=== PATIENT | female | born 1980 | race Caucasian/White ===

== ENCOUNTER 2016-08-18 12:00 | Outpatient (CLI) | payer MEDICARE, MEDICAID ==
[2016-08-18 12:31] LABS: BASOPHILS % (AUTO) 0.6 %; EOSINOPHILS # (AUTO) 0.2 10^3/uL (0.0-0.7); EOSINOPHILS % (AUTO) 2.4 %; HCT - HEMATOCRIT 40.2 % (37.0-47.0); HGB - HEMOGLOBIN 13.5 g/dL (12.0-16.0); LYMPHOCYTES # (AUTO) 2.8 10^3/uL (1.5-3.5); LYMPHOCYTES % (AUTO) 36.6 %; MEAN CORPUSCULAR HEMOGLOBIN 28.8 pg (27.0-31.0); MEAN CORPUSCULAR HGB CONC 33.6 g/dL (32.0-36.0); MEAN CORPUSCULAR VOLUME 85.6 fL (81.0-99.0); MEAN PLATELET VOLUME 6.9 fL (7.9-10.8); MONOCYTES # (AUTO) 0.4 10^3/uL (0.0-1.0); MONOCYTES % (AUTO) 4.9 %; NEUTROPHILS # (AUTO) 4.3 10^3/uL (1.5-6.6); NEUTROPHILS % (AUTO) 55.5 %; NUCLEATED RED BLOOD CELLS AUTO 0.1 /100WBC; RED BLOOD COUNT 4.69 10^6/uL (4.20-5.40); RED CELL DISTRIBUTION WIDTH 13.3 % (12.0-15.0); UNCORRECTED WHITE BLOOD COUNT 7.7 x10^3/uL; WHITE BLOOD COUNT 7.7 x10^3/uL (4.8-10.8)
[2016-08-18 12:37] LABS: ALBUMIN/GLOBULIN RATIO 1.7 (1.0-2.2); BILIRUBIN,TOTAL 0.4 mg/dL (0.2-1.0); CALCIUM 9.6 mg/dL (8.5-10.3); CREATININE 0.8 mg/dL (0.4-1.0); POTASSIUM 4.3 mmol/L (3.5-5.0); TOTAL PROTEIN 7.3 g/dL (6.7-8.2)
== END 2016-08-18 12:01 | disposition home or self-care (01) ==
LOC: LAB 12:00
PROVIDERS: ATTEND Internal Medicine
DX: Z79.899 Other long term (current) drug therapy (principal); R11.2 Nausea with vomiting, unspecified; F41.9 Anxiety disorder, unspecified
CPT/HCPCS: 36415; 80053; 82150; 83690; 84443; 85025

== ENCOUNTER 2016-09-27 20:03 | Observation (INO) | payer MEDICARE, MEDICAID ==
[2016-09-27] MEDS ORDERED: ONDANSETRON 4 MG/2 ML VIAL ONE (20:36)
[2016-09-27] MEDS ORDERED: ONDANSETRON 4 MG/2 ML VIAL IVP STA (20:37)
[2016-09-27] MEDS ORDERED: ACETAMINOPHEN 325 MG TABLET PO PRN (21:58)
[2016-09-27] MEDS ORDERED: HYDROcod/ACETAM 5/325 MG TABLET PO PRN (21:58)
[2016-09-27] MEDS ORDERED: ONDANSETRON ODT 4 MG TABLET TL PRN (21:58)
[2016-09-27] MEDS ORDERED: SODIUM CHLORIDE FLUSH 0.9% 10 ML SYRINGE IVP PRN (21:58)
[2016-09-27] MEDS: PANTOPRAZOLE 40 MG TABLET PO SCH (23:01)
[2016-09-28] MEDS ORDERED: ONDANSETRON ODT 4 MG TABLET TL PRN (00:32)
[2016-09-28] MEDS: SODIUM CHLORIDE FLUSH 0.9% 10 ML SYRINGE IVP SCH ×2 (01:33→08:33)
[2016-09-28] MEDS: PANTOPRAZOLE 40 MG TABLET PO SCH (06:34)
[2016-09-28] MEDS: CALCIUM CARBONATE CHEW 500 MG TABLET PO SCH ×2 (08:33→09:50)
[2016-09-28] MEDS ORDERED: POLYETHYLENE GLYCOL 3350 17 GM PACKET PO SCH (09:00)
[2016-09-28] MEDS ORDERED: ASCORBIC ACID CHEW 500 MG TABLET PO SCH (09:00)
[2016-09-28] MEDS ORDERED: carBAMazepine 200 MG TABLET PO SCH (09:00)
[2016-09-28] MEDS ORDERED: FEXOFENADINE 60 MG TABLET PO SCH (09:00)
[2016-09-28] MEDS ORDERED: SODIUM CHLORIDE 0.45% 1,000 ML IV SCH (09:00)
[2016-09-28] MEDS ORDERED: SPIRONOLACTONE 25 MG TABLET PO SCH (09:00)
[2016-09-28] MEDS ORDERED: FLUTICASONE NAS SCH (09:00)
== END 2016-09-28 13:30 | disposition home or self-care (01) ==
DX: I95.2 Hypotension due to drugs (principal); T44.7X5A Adverse effect of beta-adrenoreceptor antagonists, initial encounter; I42.9 Cardiomyopathy, unspecified; I44.7 Left bundle-branch block, unspecified; D64.9 Anemia, unspecified; R41.89 Other symptoms and signs involving cognitive functions and awareness; E66.01 Morbid (severe) obesity due to excess calories; F31.9 Bipolar disorder, unspecified; F41.0 Panic disorder [episodic paroxysmal anxiety]; G47.33 Obstructive sleep apnea (adult) (pediatric); J30.9 Allergic rhinitis, unspecified; K21.9 Gastro-esophageal reflux disease without esophagitis; R11.2 Nausea with vomiting, unspecified; Z68.41 Body mass index [BMI] 40.0-44.9, adult; Z87.440 Personal history of urinary (tract) infections
CPT/HCPCS: 36415; 80053; 81003; 81025; 82550; 82553; 83690; 83735; 84484; 85025; 93005; 93010; 93306; 96361; 96374; 99284; A9270; G0378; Q0162

== ENCOUNTER 2016-10-03 09:48 | Outpatient (CLI) | payer MEDICARE, MEDICAID | END 2016-10-03 09:49 | disposition home or self-care (01) | DX: R11.10 Vomiting, unspecified (principal) | CPT/HCPCS: 78265; A9541 ==

== ENCOUNTER 2016-12-06 10:42 | Outpatient (CLI) | payer MEDICARE, MEDICAID ==
[2016-12-06 11:17] LABS: BASOPHILS % (AUTO) 0.4 %; EOSINOPHILS # (AUTO) 0.1 10^3/uL (0.0-0.7); EOSINOPHILS % (AUTO) 1.5 %; HCT - HEMATOCRIT 39.7 % (37.0-47.0); HGB - HEMOGLOBIN 13.6 g/dL (12.0-16.0); LYMPHOCYTES # (AUTO) 2.5 10^3/uL (1.5-3.5); LYMPHOCYTES % (AUTO) 29.3 %; MEAN CORPUSCULAR HEMOGLOBIN 30.1 pg (27.0-31.0); MEAN CORPUSCULAR HGB CONC 34.3 g/dL (32.0-36.0); MEAN PLATELET VOLUME 6.6 fL (7.9-10.8); MONOCYTES # (AUTO) 0.4 10^3/uL (0.0-1.0); NEUTROPHILS # (AUTO) 5.5 10^3/uL (1.5-6.6); NEUTROPHILS % (AUTO) 63.8 %; NUCLEATED RED BLOOD CELLS AUTO 0.1 /100WBC; RED BLOOD COUNT 4.51 10^6/uL (4.20-5.40); RED CELL DISTRIBUTION WIDTH 12.8 % (12.0-15.0); UNCORRECTED WHITE BLOOD COUNT 8.5 x10^3/uL; WHITE BLOOD COUNT 8.5 x10^3/uL (4.8-10.8)
[2016-12-06 11:46] LABS: ALBUMIN/GLOBULIN RATIO 1.6 (1.0-2.2); BILIRUBIN,TOTAL 0.5 mg/dL (0.2-1.0); BUN - BLOOD UREA NITROGEN 13 mg/dL (6-20); CALCIUM 9.4 mg/dL (8.5-10.3); CARBON DIOXIDE - CO2 25 mmol/L (21-32); CHLORIDE 103 mmol/L (101-111); CHOL/HDL RATIO 4.4 (<4.4); CHOLESTEROL 189 mg/dL; CREATININE 0.7 mg/dL (0.4-1.0); GFR - MDRD 94 (>89); GLUCOSE 108 mg/dL (70-100); HDL CHOLESTEROL 43 mg/dL; LDL/HDL RATIO 2.9 (<4.4); POTASSIUM 4.1 mmol/L (3.5-5.0); SODIUM 137 mmol/L (135-145); TOTAL PROTEIN 7.4 g/dL (6.7-8.2); TRIGLYCERIDES 117 mg/dL; VLDL CHOLESTEROL 23 mg/dL
== END 2016-12-06 10:43 | disposition home or self-care (01) ==
LOC: LAB 10:42
PROVIDERS: ATTEND Internal Medicine
DX: Z00.00 Encounter for general adult medical examination without abnormal findings (principal); I42.9 Cardiomyopathy, unspecified; R11.2 Nausea with vomiting, unspecified; G56.00 Carpal tunnel syndrome, unspecified upper limb; F31.9 Bipolar disorder, unspecified; F41.9 Anxiety disorder, unspecified; Z79.899 Other long term (current) drug therapy
CPT/HCPCS: 36415; 80053; 80061; 84443; 85025

== ENCOUNTER 2017-04-21 08:00 | Outpatient (CLI) | payer MEDICARE, MEDICAID | END 2017-04-21 08:01 | disposition home or self-care (01) | LOC: LAB.R 08:00 | PROVIDERS: ATTEND Registered Nurse | DX: Z30.430 Encounter for insertion of intrauterine contraceptive device (principal); Z11.3 Encounter for screening for infections with a predominantly sexual mode of transmission | CPT/HCPCS: 87480; 87491; 87510; 87591; 87660 ==

== ENCOUNTER 2017-04-21 14:46 | Outpatient (CLI) | payer MEDICARE, MEDICAID ==
[2017-04-22 04:46] LABS: TEST RESULT REPORT
== END 2017-04-21 14:47 | disposition home or self-care (01) ==
LOC: LAB 14:46
PROVIDERS: ATTEND Registered Nurse
DX: Z30.430 Encounter for insertion of intrauterine contraceptive device (principal); Z11.3 Encounter for screening for infections with a predominantly sexual mode of transmission
CPT/HCPCS: 36415; 81599; 86592; 86695; 86696; 87389; 87480; 87491; 87510; 87591; 87660

== ENCOUNTER 2017-04-28 13:06 | Outpatient (CLI) | payer MEDICARE, MEDICAID ==
--- NOTE | 2017-04-28 17:07 | Ultrasound Report ---
PELVIC ULTRASOUND: 04/28/2017 CLINICAL INDICATION: Displacement of intrauterine contraceptive device. TECHNIQUE: Transabdominal pelvic ultrasound performed for global evaluation. Transvaginal pelvic ul trasound performed for detailed evaluation. Real-time scanning performed and static images obtained. The uterus is anteverted, measuring 9.1 x 5.7 x 4.2 cm. The endometrial echo complex measures 7 mm. No focal myometrial lesion is present. The right ovary is unremarkable, measuring 2.4 x 1.8 x 1.5 c m. The left ovary measures 5.0 x 2.8 x 2.5 cm, and contains a 2.2 x 1.8 x 1.7 cm follicle. Trace fr ee fluid is present. IMPRESSION: NORMAL PELVIC ULTRASOUND. NO IUD VISUALIZED. JOB #: [id number] EXT JOB #:[id number]
== END 2017-04-28 13:07 | disposition home or self-care (01) ==
LOC: DI 13:06
PROVIDERS: ATTEND Registered Nurse
DX: T83.32XA Displacement of intrauterine contraceptive device, initial encounter (principal)
CPT/HCPCS: 76830; 76856

== ENCOUNTER 2017-09-28 14:03 | Outpatient (CLI) | payer MEDICARE, MEDICAID ==
--- NOTE | 2017-09-28 18:54 | XRAY Report ---
THREE VIEW LEFT FOOT: 09/28/2017 CLINICAL INDICATION: Toe pain. FINDINGS: AP, lateral, oblique views of the left foot demonstrate a fracture of the distal phalanx of the fourth toe, better seen on toe films of the same day. No other fracture is appreciated. No radiopaque foreign body is seen in the soft tissues. Plantar calcaneal spurring is present. IMPRESSION: FRACTURE OF THE DISTAL PHALANX OF THE FOURTH TOE, BETTER SEEN ON TOE FILMS OF THE SAME DAY. TD: 09/28/2017 18:53
--- NOTE | 2017-09-28 18:55 | XRAY Report ---
THREE VIEW LEFT FOURTH TOE: 09/28/2017 CLINICAL INDICATION: Toe pain. FINDINGS: AP, lateral, oblique views of the left fourth toe demonstrate a mildly displaced fracture of the distal phalanx. No intraarticular extension is seen. IMPRESSION: MILDLY DISPLACED FRACTURE OF THE DISTAL PHALANX OF THE FOURTH TOE. TD: 09/28/2017 18:54
== END 2017-09-28 14:04 | disposition home or self-care (01) ==
LOC: DI 14:03
PROVIDERS: ATTEND Internal Medicine
DX: S92.532A Displaced fracture of distal phalanx of left lesser toe(s), initial encounter for closed fracture (principal)
CPT/HCPCS: 73660

== ENCOUNTER 2017-09-29 08:46 | Outpatient (CLI) | payer MEDICARE, MEDICAID | END 2017-09-29 08:47 | disposition home or self-care (01) | LOC: LAB 08:46 | PROVIDERS: ATTEND Registered Nurse | DX: L68.0 Hirsutism (principal) | CPT/HCPCS: 36415; 82951 ==

== ENCOUNTER 2017-10-13 13:29 | Outpatient (CLI) | payer MEDICARE, MEDICAID ==
[2017-10-13 19:02] LABS: BILIRUBIN,URINE NEGATIVE (NEGATIVE); GLUCOSE, URINE (UA) NEGATIVE (NEGATIVE); KETONES,URINE (UA) NEGATIVE (NEGATIVE); LEUKOCYTE ESTERASE, URINE NEGATIVE (NEGATIVE); NITRITE,URINE NEGATIVE (NEGATIVE); OCCULT BLOOD,URINE NEGATIVE (NEGATIVE); PH,URINE 6.5 PH (5.0-7.5); PROTEIN,URINE NEGATIVE (NEGATIVE); UROBILINOGEN,URINE 0.2 (NORMAL) E.U./dL (NORMAL)
[2017-10-13 19:08] LABS: CLARITY,URINE CLEAR (CLEAR)
[2017-10-13 19:28] LABS: BACTERIA,URINE Rare /HPF (None Seen); MUCUS,URINE Few Strands; RBC,URINE 0-5 /HPF (0-5); SQUAMOUS EPITHELIAL CELL,UR FEW Squamous (<= Few)
== END 2017-10-13 13:30 | disposition home or self-care (01) ==
LOC: LAB.N 13:29
PROVIDERS: ATTEND Obstetrics & Gynecology
DX: N39.41 Urge incontinence (principal)
CPT/HCPCS: 81001

== ENCOUNTER 2017-10-26 16:34 | Outpatient (CLI) | payer MEDICARE, MEDICAID ==
[2017-10-26 12:19] LABS: BILIRUBIN,URINE NEGATIVE (NEGATIVE); GLUCOSE, URINE (UA) NEGATIVE (NEGATIVE); KETONES,URINE (UA) NEGATIVE (NEGATIVE); LEUKOCYTE ESTERASE, URINE NEGATIVE (NEGATIVE); NITRITE,URINE NEGATIVE (NEGATIVE); OCCULT BLOOD,URINE NEGATIVE (NEGATIVE); PROTEIN,URINE NEGATIVE (NEGATIVE); UROBILINOGEN,URINE 0.2 (NORMAL) E.U./dL (NORMAL)
[2017-10-26 12:26] LABS: CLARITY,URINE CLOUDY (CLEAR)
[2017-10-26 12:38] LABS: BACTERIA,URINE Many /HPF (None Seen); RBC,URINE None Seen /HPF (0-5); SQUAMOUS EPITHELIAL CELL,UR RARE Squamous (<= Few)
== END 2017-10-26 16:35 | disposition home or self-care (01) ==
LOC: LAB.R 16:34
PROVIDERS: ATTEND Obstetrics & Gynecology
DX: R35.0 Frequency of micturition (principal)
CPT/HCPCS: 81001; 87086

== ENCOUNTER 2017-12-26 11:30 | Outpatient (CLI) | payer MEDICARE, MEDICAID ==
[2017-12-26 12:06] LABS: HGB - HEMOGLOBIN 13.1 g/dL (12.0-16.0); MEAN CORPUSCULAR HEMOGLOBIN 28.8 pg (27.0-31.0); MEAN CORPUSCULAR HGB CONC 32.7 g/dL (32.0-36.0); MEAN CORPUSCULAR VOLUME 88.1 fL (81.0-99.0); RED BLOOD COUNT 4.55 10^6/uL (4.20-5.40); WHITE BLOOD COUNT 10.8 x10^3/uL (4.8-10.8)
[2017-12-26 12:07] LABS: BASOPHILS % (AUTO) 0.4 %; EOSINOPHILS # (AUTO) 0.1 10^3/uL (0.0-0.7); EOSINOPHILS % (AUTO) 1.1 %; LYMPHOCYTES # (AUTO) 2.4 10^3/uL (1.5-3.5); LYMPHOCYTES % (AUTO) 21.9 %; MEAN PLATELET VOLUME 6.5 fL (7.9-10.8); MONOCYTES # (AUTO) 0.5 10^3/uL (0.0-1.0); MONOCYTES % (AUTO) 4.7 %; NEUTROPHILS # (AUTO) 7.8 10^3/uL (1.5-6.6); NEUTROPHILS % (AUTO) 71.9 %; PLT - PLATELET COUNT 404 10^3/uL (130-450); RED CELL DISTRIBUTION WIDTH 14.3 % (12.0-15.0)
[2017-12-26 12:18] LABS: HB2 TOTAL 14.3 g/dL; HEMOGLOBIN A1C 0.48 g/dL; HEMOGLOBIN A1C % 5.2 % (4.6-6.2)
== END 2017-12-26 11:31 | disposition home or self-care (01) ==
LOC: LAB 11:30
PROVIDERS: ATTEND Internal Medicine
DX: R73.01 Impaired fasting glucose (principal); Z79.899 Other long term (current) drug therapy
CPT/HCPCS: 36415; 83036; 85025

== ENCOUNTER 2018-01-01 16:05 | Outpatient (CLI) | END 2018-01-01 16:06 | disposition home or self-care (01) ==

== ENCOUNTER 2018-01-03 10:00 | Day surgery (SDC) | payer MEDICARE, MEDICAID ==
--- NOTE | 2018-01-02 07:28 | PREOP HISTORY & PHYSICAL ---
DATE OF SERVICE: 01/01/2018 Physician: Chris Durham MD ANTICIPATED DATE OF PROCEDURE: 01/03/2018. DIAGNOSES 1. Stress urinary incontinence. 2. Sterilization. 3. Congestive heart failure, "healed." 4. Morbid obesity. 5. Beta francisco therapy. INTENDED PROCEDURES 1. Laparoscopic bilateral salpingectomy. 2. Urethral sling procedure (MiniArc) HISTORY OF PRESENT ILLNESS: Patient is a 37-year-old primigravida who has known idiopathic congenital heart failure and right bundle branch block. Patient is currently being followed at [facility]. She is termed a healed congestive heart failure, in that her ejection fraction is now near normal, at 50 percent to 55 percent. Patient had an IUD in place that was very painful, could not be tolerated and therefore removed. Current recommendations for congestive heart failure patients is contraception either with a nonhormonal contraception, with IUD if possible, since with CHF carries a mortality rate of 40 percent. Patient had her IUD removed and strongly desires sterilization. She had 1 occcasion of unprotected sex and had 1 course of plan B. After a consultation with both Dr. De La Garza and Dr. Moore of [facility], she has been cleared for laparoscopic sterilization procedure. Reference consult letters. In addition, patient has stress urinary incontinence without urge incontinence or dysuria. UV mobility has been illustrated on physical examination. She was originally sent to Dr. Nunez, Urology, for urodynamic studies. Urodynamics was not completed; however, the stress incontinence remains problematic. Patient has cognitive disability and memory lapses and this, as well as chronic anxiety disorder, has compromised her care. We discussed the need to update her advanced directive since it states Do Not Resuscitate. She strongly conveyed that she wants cardiac pulmonary resuscitation if there is an adverse event. 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 She reports q.32 to 34-day menses with 3 days of light flow. Patient is not currently on any contraceptive. She has had 2 abnormal Pap smears. The last abnormal was in 2007 with inflammatory ASCUS. Patient is status post cryo with Dr. Santillan, due to dysplasia. 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 Reference notes above. Screening colonoscopy 2016, normal, and EGD for chronic nausea and vomiting. HISTORY: A 38-week female induced secondary to PUPPS and positive GBS status. Heavy blood loss post delivery. PSYCHIATRIC HISTORY: Anxiety disorder with bipolar affective disorder and panic attacks, currently seeing psychiatrist. Patient was given a short-term prescription for lorazepam. Patient has a history of psychiatric admission in [place]. PAST SURGICAL HISTORY: [place] tooth extraction, EGD, and colonoscopy. Childhood bladder surgery, type unknown. ALLERGIES: NO KNOWN DRUG ALLERGY. MEDICATIONS: Beta blockers and multiple cardiac drugs. Reference intake log. FAMILY HISTORY: Diabetes, CAD, hypertension, hypercholesterolemia. SOCIAL HISTORY: Marital Status: Single. Prior smoker, quit 5 years ago. No drug or tobacco use other than occasional marijuana. REVIEW OF SYSTEMS CONSTITUTIONAL: Patient is gradually losing weight on a planned diet and activity program. HEENT: Negative. RESPIRATORY: Negative. CARDIOVASCULAR: No palpitations, irregular heart beat, or anginal pain. GASTROINTESTINAL: Negative. GENITOURINARY: Urinary stress incontinence is noted during the day, positive pad use. MUSCULOSKELETAL: Negative. No edema. SKIN: Negative. BREASTS: Negative. NEUROLOGIC: Grossly intact. PSYCHOLOGIC: Other than baseline anxiety, no problems noted. PHYSICAL EXAMINATION GENERAL: Well groomed, pleasant manner, cooperative. HEENT: Nontraumatic. Equal pupils. Normal ocular movements. Nonicteric sclerae. No hirsutism or acne noted. NECK: No thyromegaly or nodularity. LUNGS: Clear to auscultation. CARDIAC: Regular. No significant murmur or gallop. BREASTS: No self-breast exam findings noted, patient's first exam. ABDOMEN: Truncal obesity. Mild hepatomegaly. Normal spleen. No herniations. No significant tenderness. UROGENITAL: Vulva, Bartholin glands normal. No atrophy. No significant lesions. Urethral meatus seems normal and no palpable diverticula. Male hair patterning. VAGINA: Grade 1 cystocele. Grade 1- rectocele. UV mobility noted. Cervix, no abnormal secretions. No lesions. No ulceration. Uterus approximately 6 weeks' size, not hypermobile. Adnexa difficult to tell due to obesity but not felt to be enlarged. EXTREMITIES: Nonedematous. No muscle wasting. NEUROLOGIC: Grossly intact. PSYCHOLOGIC: Baseline anxiety noted. Known cognitive/memory defect. ASSESSMENT 1. The patient desires sterilization. She is unable to tolerate IUD and hormonal methods with congestive heart failure are not recommended. Currently, her status is "healed," but, if in the future there is a CHF relapse, unintentional , or just in itself, carries grave risks. The patient has had intensive workup with [facility] and is cleared for laparoscopic procedure. 2. The patient has stress urinary incontinence with concomitant UV mobility and cystocele. Sling procedure is curative in roughly 90% of the time. There is no evidence of urinary tract infection. PLAN 1. Bilateral salpingectomy to provide reliable means of sterilization. Patient is aware that sterilization is a surgical procedure that carries risk including: Bleeding, transfusion, infection, damage to abdominal viscera or bladder, anesthesia reaction and in extreme . She is aware that her history of congestive heart failure increases the risk of adverse event. 2. MiniArc suburethral sling. We reviewed the mechanics, risks and alternatives to sling procedure. In addition to the usual operative risks outlined above a sling procedure can result in urinary retention, urinary urgency, lack of cure, erosion of sling mesh into vaginal wall, urethra or bladder. She is aware that her BMI could accelerate the sling losing effectiveness or erosion process. Return to urology for second opinion was offered. Patient is not felt to need more than 72 hours' time in the hospital, and we will attempt to accomplish this as an extended stay or observation type surgery. She will probably require straight cath bladder training for at least 24 hours.She should maintain uninterrupted beta francisco therapy. In addition, 3 grams of Ancef prior to surgery would be prudent, given her heart disease history. Formal visit with Anesthesiology is pending. TD: 01/01/2018 15:55 MARIANELA
[~2018-01-03 10:00] MED LIST: ACETAMINOPHEN 500 MG TABLET PO SCH; ESTROGENS, CONJUGATED CREAM 30 GM TUBE ONE; LACTATED RINGERS 1,000 ML IV SCH; LIDOCAINE 1%-EPI 1:100000 30 ML MDV ONE; ONDANSETRON 4 MG/2 ML VIAL IVP PRN; ZOLPIDEM 5 MG TABLET PO PRN; oxyCODONE 5 MG TABLET PO PRN
[2018-01-03 10:29] LABS: HCG UR QUAL NEGATIVE
[2018-01-03] MEDS ORDERED: LACTATED RINGERS 1,000 ML IV ONE ×2 (10:36→11:30)
[2018-01-03] MEDS ORDERED: BUPIVACAINE 0.25% PF 30 ML VIAL ONE (11:01)
[2018-01-03] MEDS ORDERED: BUPIVACAINE 0.25%-EPI 1:200000 PF 30 ML VIAL ONE (11:02)
[2018-01-03] MEDS ORDERED: BUPIVACAINE 0.25%-EPI 1:200000 PF 30 ML VIAL SUBQ ONE (11:14)
[2018-01-03] MEDS ORDERED: BUPIVACAINE 0.25% PF 30 ML VIAL SUBQ ONE ×2 (11:16)
[2018-01-03] MEDS ORDERED: MIDAZOLAM 2 MG/2 ML VIAL IVP ONE (11:30)
[2018-01-03] MEDS ORDERED: FUROSEMIDE 40 MG/4 ML VIAL IVP ONE (11:30)
[2018-01-03] MEDS ORDERED: KETOROLAC 30 MG/ML VIAL IVP ONE (11:30)
[2018-01-03] MEDS ORDERED: ROCURONIUM 50 MG/5 ML VIAL IVP ONE (11:30)
[2018-01-03] MEDS ORDERED: LIDOCAINE-MPF 2% 5 ML VIAL IM ONE (11:30)
[2018-01-03] MEDS ORDERED: fentaNYL 100 MCG/2 ML VIAL IVP ONE (11:30)
[2018-01-03] MEDS ORDERED: DEXAMETHASONE 4 MG/ML VIAL IVP ONE (11:30)
[2018-01-03] MEDS ORDERED: GLYCOPYRROLATE 1 MG/5 ML VIAL IVP ONE (11:30)
[2018-01-03] MEDS ORDERED: NEOSTIGMINE 1 MG/1 ML 10 ML MDV IVP ONE (11:30)
[2018-01-03] MEDS ORDERED: SUCCINYLCHOLINE 200 MG/10 ML VIAL IVP ONE (11:30)
[2018-01-03] MEDS ORDERED: PROPOFOL 200 MG/20 ML VIAL IVP ONE (11:30)
[2018-01-03] MEDS ORDERED: CLINDAMYCIN 600 MG/50 ML 50 ML IV ONE (11:42)
[2018-01-03] MEDS ORDERED: metroNIDAZOLE 500 MG/100 ML 500 MG/100 ML BAG ONE (11:42)
[2018-01-03] MEDS ORDERED: METHYLENE BLUE 0.5% 50 MG/10 ML AMPULE ONE (12:20)
--- NOTE | 2018-01-03 13:16 | OPERATIVE REPORT ---
Operative Report - General Planned Procedure: Laparoscopic bilateral salpingectomy; cystoscopy; mini arc suburethral slin Pre-Op Diagnosis: Desires sterilization; stress urinary incontinence; history of idiopathic c Procedure Performed: Laparoscopic bilateral salpingectomy; cystoscopy; endocervical curette sample Post Op Diagnosis: Same as above; no flow observed from left ureteral orifice - Procedure Note Primary Surgeon: Chris Conteh ACOG Anesthesia Provider: Luis Nichols, certified nurse bottle hop Anesthesia Technique: General ET tube Pathology: 2 tubal segments IV Fluids (mL): 1,300 Estimated Blood Loss (mL): 10 Urine Output (mL): 100 Drain/Tube Type: Other (Bowers catheter with clear urine) Complications: none
[2018-01-03] MEDS ORDERED: ACETAMINOPHEN 1,000 MG/100 ML 100 ML IV ONE (13:54)
[2018-01-03] MEDS ORDERED: HYDROcod/ACETAM 5/325 MG TABLET ONE (14:54)
[2018-01-03 16:10] VITALS: BP 122/65
--- NOTE | 2018-01-03 17:47 | OPERATIVE REPORT ---
DATE OF SERVICE: 01/03/2018 Physician: Chris Durham MD PREOPERATIVE DIAGNOSES 1. Desires sterilization. 2. Stress urinary incontinence. 3. History of idiopathic cardiomyopathy. 4. History of childhood urologic surgery. 5. Morbid obesity, body mass index over 40. POSTOPERATIVE DIAGNOSES 1. Successful sterilization through bilateral salpingectomy; cystoscopy could not document flow from left ureteral orifice; suburethral sling procedure not performed. 2. Endocervical lesion sampled by curettage. 3. Morbid obesity, body mass index over 40. SURGEON: Chris Durham M.D., FACOG ANESTHESIA: Luis Nichols, certified nurse needlemaker. ANESTHESIA TYPE: General, ET tube placed. COMPLICATIONS: None. ESTIMATED BLOOD LOSS: 10 mL. IV FLUIDS: 1300 mL. URINE OUTPUT: 100 mL. FINDINGS: On initial examination, a small white crescent material was found on the endocervix. This was removed with a curette and sent to path. Uterus is normal size and globular without irregularity suggestive of fibroid. Both tubes are open and fluffy-appearing. The ovaries are normal in appearance without any excrescence or cysts. Bladder neck mobility is present. Urethroscopy did not find any diverticula. The bladder interior itself has no tumor or growths. The surface of the mucosa is not inflamed and there is no obvious interstitial cystitis. Right ureters were slow to spurt urine. After Lasix, right ureter had brisk flow. The left ureter was observed for over 10 minutes and there was still no flow. TECHNIQUE: Prior to surgery, I reviewed the risks, benefits and mechanics of the intended laparoscopic surgery and cystoscopy with follow on sling procedure. Final consents were signed inclusive of Medicaid sterilization consent. The patient was brought to the operating room and placed in supine position for administration of general anesthesia. She was uneventfully induced and intubated. She was moved to the low dorsal lithotomy position on [facility]. She was prepped and draped in the customary sterile fashion. A timeout briefing was done per protocol. A speculum was inserted and the cervix visualized. A small white crescent was noted and sampled with a curette. The endocervical canal was gently dilated with serial application of Hegar probes to Hegar #4. HUMI uterine manipulator was then uneventfully placed and the balloon insufflated with 5 mL of air. All vaginal instruments were then removed. The patient was returned to the low dorsal lithotomy position. A small incision was placed under the umbilical skin fold after injecting 3 mL of plain Marcaine 0.25%. Using direct visualization and Visiport, a 5 mm trocar was uneventfully placed. The abdomen was insufflated with CO2 under 12 mm of pressure. Right and left lower quadrant operating ports were placed under direct visualization. The pelvis was then assessed. A Trendelenburg 30 degrees was used to facilitate visualization. Starting with the right tube, the ampullary tube was grasped and tented superiorly to reveal the mesosalpinx. Mesosalpinx was uneventfully desiccated and divided with LigaSure. This was continued up to the cornual verge. The tube was then transected with LigaSure at that point. This procedure was uneventfully repeated on the left hand side. Tubes were removed through the 5 mm ports. The CO2 gas was then vented. Trocar sleeves were removed. Abdomen was desufflated of CO2 gas. Skin wounds were closed with interrupted subcuticular stitches of 4-0 Monocryl. Additional plain Marcaine 0.25% was injected for comfort. The wounds were dressed with Dermabond. We moved to the vaginal phase of the case. Legs were brought to a higher position. A 70-degree video cystoscope was prepared. The video cystoscope was passed through the urethra and into the bladder cavity. The bladder was insufflated with sterile normal saline. Beginning at the dome of the bladder, a systematic evaluation of the bladder mucosa was made. There was some cystitis cystica at the trigone, but this was not deemed significant. Next the right ureter was located and observed. After 5 minutes, the ureter had free flow of clear urine. Next, the left ureter was observed and there was no flow of urine. The bladder was pressurized and depressurized several cycles. The bladder was gently palpated with vaginal fingers, but yet there was no flow of urine. Ten minutes were spent in direct visualization of the left ureteral orifice. Lasix was given as well as methylene blue. There was no outflow of urine. At this point, it was decided not to move forward with the suburethral sling procedure due to concerns about the integrity of the urinary collecting tract. The patient had surgery in childhood, which we have never received the records documenting exactly what was done. Prudence dictated not performing this sling incontinence procedure until after a urology workup. The patient was returned to the supine position. Bowers catheter was placed. The patient was uneventfully awakened from general anesthesia and sent to the recovery room in good condition. Once in recovery, the intraoperative events were discussed. The patient understands my hesitance to perform urinary incontinence procedure until the status of her collecting tract is known. All sponge, needle, and instrument counts were confirmed as correct. The patient will be seen in 2 weeks for postop evaluation. Until that time, she was placed on extended stay. We discussed the intraoperative findings on 3 occasions. The patient has difficulty with cognitive function. For pain control, the patient was admitted on an extended stay. DISCHARGE MEDICATIONS: Reserve 325/5. TD: 01/03/2018 13:57 MTDSky
[2018-01-03] MEDS ORDERED: NITROFURANTOIN MACRO 100 MG CAPSULE PO SCH (21:00)
== END 2018-01-03 10:01 | disposition home or self-care (01) ==
LOC: SDS 10:00 → EDSTATUS 12:30
PROVIDERS: ATTEND Obstetrics & Gynecology
PROC: 0UT74ZZ Resection of Bilateral Fallopian Tubes, Percutaneous Endoscopic Approach (ICD-10-PCS; principal; 2018-01-03 11:15)
PROC: 0TJB8ZZ Inspection of Bladder, Via Natural or Artificial Opening Endoscopic (ICD-10-PCS; 2018-01-03 11:15)
DX: Z30.2 Encounter for sterilization (principal); N39.3 Stress incontinence (female) (male); N88.8 Other specified noninflammatory disorders of cervix uteri; I50.9 Heart failure, unspecified; I42.9 Cardiomyopathy, unspecified; E66.01 Morbid (severe) obesity due to excess calories
CPT/HCPCS: 52000; 58661; 81025; A9270; J0131; J0330; J7120; 85025; 88302; 88305

== ENCOUNTER 2018-01-15 11:24 | Outpatient (CLI) | payer MEDICARE, MEDICAID ==
[2018-01-15] MEDS ORDERED: IOPAMIDOL-300 100 ML VIAL ONE (11:47)
[2018-01-15] MEDS ORDERED: IOPAMIDOL-300 100 ML VIAL IVP ONE (12:30)
--- NOTE | 2018-01-15 14:53 | CT Report ---
Procedure Date: 01/15/2018 Accession Number: [id number] / [id number] Procedure: CT - IVP CPT Code: FULL RESULT: EXAM: IVP DATE: 01/15/2018 12:47 PM CLINICAL HISTORY: ABNORMAL URETERAL ANATOMY ON CYSTOSCOPY COMPARISON: None. TECHNIQUE: Routine helical imaging was performed through the kidneys, ureters and bladder in the precontrast and postcontrast phases, using split bolus technique. IV Contrast: 100 mL of Isovue 300 Reconstructions: Coronal and sagittal. In accordance with CT protocol optimization, one or more of the following dose reduction techniques were utilized for this exam: automated exposure control, adjustment of mA and/or KV based on patient size, or use of iterative reconstructive technique. FINDINGS: Lung Bases: Normal. Right Kidney/Ureter: No stones, hydronephrosis, or masses. Left Kidney/Ureter: No stones, hydronephrosis, or masses. Other Solid Organs: The liver, spleen, pancreas, gallbladder, and adrenal glands are unremarkable. The bile ducts are unremarkable. Peritoneal Cavity/Bowel: Normal. No free fluid, free air or adenopathy. No masses. Bowel loops are unremarkable. Pelvic Organs: The urinary bladder appears unremarkable. No cystocele is seen. Trace free fluid is present, likely physiologic. Vasculature: Normal. Bones: Normal. Other: None. IMPRESSION: No evidence of ureteral duplication. Normal CT IVP. RADIA
== END 2018-01-15 11:25 | disposition home or self-care (01) ==
LOC: DI 11:24
PROVIDERS: ATTEND Internal Medicine
DX: R93.41 Abnormal radiologic findings on diagnostic imaging of renal pelvis, ureter, or bladder (principal)
CPT/HCPCS: 74178; Q9967

== ENCOUNTER 2018-02-09 23:22 | Emergency (ER) | payer MEDICARE, MEDICAID ==
[2018-02-09] MEDS ORDERED: SODIUM CHLORIDE 0.9% 1,000 ML IV ONE (23:43)
[2018-02-09] MEDS ORDERED: DEXAMETHASONE 10 MG/ML VIAL IVP STA (23:43)
[2018-02-09] MEDS ORDERED: FAMOTIDINE 20 MG in SODIUM CHLORIDE 0.9% 50 ML IV ONE (23:43)
[2018-02-09] MEDS ORDERED: diphenhydrAMINE INJ 50 MG/ML VIAL IVP STA (23:43)
[2018-02-09] MEDS ORDERED: EPINEPHrine 0.3 MG/0.3 ML SYRINGE IM ONE (23:44)
--- NOTE | 2018-02-09 23:45 | ED Physician Documentation ---
History of Present Illness - Stated complaint Stated Complaint: POSS ALLERGIC REACTION/SOA - Chief complaint Chief Complaint: Resp - History obtained from History obtained from: Patient - Additonal information Additional information: 37-year-old female presents the emergency department for evaluation of an allergic reaction. The patient took Bactrim this evening and subsequently has developed generalized redness, a feeling of warmth throughout her body and throat tightness and a perception of feeling short of breath. Symptoms are described as moderate. No other relieving factors. No history of prior reactions. No attempts at symptom management Review of Systems Constitutional: denies: Fever, Chills Eyes: denies: Discharge Ears: denies: Ear pain Nose: denies: Congestion Throat: denies: Oral lesions / sores Cardiac: denies: Chest pain / pressure Respiratory: reports: Dyspnea : denies: Dysuria Skin: denies: Laceration (s) Musculoskeletal: denies: Neck pain Neurologic: denies: Generalized weakness Immunocompromised: denies: Chemotherapy PD PAST MEDICAL HISTORY - Past Medical History Cardiovascular: Other Respiratory: None Endocrine/Autoimmune: None GI: GERD, Hiatal hernia, Chronic diarrhea : Incontinence, Nocturia, Frequency HEENT: Chronic vision loss, Other Psych: Depression, Anxiety, Panic attacks, ADD/ADHD Musculoskeletal: None, Fatigue Derm: None - Past Surgical History 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, EGD /[employer]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: Tubal ligation, Other HEENT: Other - Present Medications Home Medications: Ambulatory Orders Medication Instructions Recorded Confirmed Losartan Potassium 25 mg PO BID 03/22/16 01/03/18 Omeprazole 20 mg PO BID 03/22/16 01/03/18 Spironolactone 50 mg PO DAILY 03/22/16 01/03/18 Ondansetron [Zofran Odt] 8 mg PO Q8HR 03/25/16 01/03/18 Calcium Carbonate [Tums] 400 mg PO TID 09/28/16 01/03/18 Diphenoxylate HCl/Atropine 1 tab PO DAILY PRN 09/28/16 01/03/18 [Diphenoxylate-Atrop 2.5-0.025] Lamotrigine [Lamotrigine ER] 200 mg PO DAILY 01/01/18 01/03/18 Melatonin 1 mg PO QPM PRN 01/01/18 01/03/18 Metoprolol Succinate [Toprol Xl] 25 mg PO BID 01/01/18 01/03/18 Multivitamin [Multiple Vitamins] 1 each PO DAILY 01/01/18 01/03/18 Oxybutynin Chloride [Ditropan Xl] 15 mg PO DAILY 01/01/18 01/03/18 Lorazepam [Ativan] 1 mg PO TID PRN 01/03/18 01/03/18 - Allergies Allergies/Adverse Reactions: Allergies Allergy/AdvReac Type Severity Reaction Status Date / Time methylphenidate HCl * AdvReac Emesis Verified 03/25/16 07:28 [From Ritalin] Penicillins AdvReac Unknown Verified 01/01/18 16:22 pollen extracts AdvReac Unknown Verified 01/03/18 10:34 - Social History Does the pt smoke?: No Smoking Status: Never smoker Does the pt drink ETOH?: Yes Does the pt have substance abuse?: Yes Substance Use and Type: Marijuana - Immunizations Immunizations are current?: Yes PD ED PE NORMAL - General General: Alert and oriented X 3 - HEENT HEENT: Atraumatic, PERRL, EOMI, Ears normal, Other (The uvula is midline and nonedematous, there is no trismus, the tongue appears to be within normal limits , the mouth is moist, there is no posterior pharynx edema. No stridor. The patient has a normal sounding voice) - Neck Neck: Supple, no meningeal sign - Cardiac Cardiac: Strong equal pulses - Respiratory Respiratory: No respiratory distress, Clear bilaterally - Derm Derm: Normal color - Extremities Extremities: No deformity - Neuro Neuro: Alert and oriented X 3, Normal speech - Psych Psych: Normal affect PD ED PE EXPANDED - Cardiac Cardiac: Tachy Results - Vitals Vitals: Vital Signs - 24 hr 02/09/18 02/10/18 02/10/18 23:25 00:10 00:40 Temperature 36.7 C Heart Rate 127 H 94 80 Respiratory 25 H 18 20 Rate Blood Pressure 139/95 H 116/81 H 122/74 O2 Saturation 99 97 100 02/10/18 02:15 Temperature Heart Rate 73 Respiratory 13 Rate Blood Pressure 95/52 L O2 Saturation 98 Oxygen O2 Source Room air PD MEDICAL DECISION MAKING - ED course ED course: The patient was treated in the emergency department for her allergic reaction and was observed for close to 4 hours. The patient had significant improvement in a reevaluation was almost at her baseline. There is no evidence of airway involvement and the patient appears appropriate for discharge and ongoing outpatient management. I discussed the findings with the patient and plan she understands and agrees. I discussed warning signs and recommended returning to the emergency department immediately for worsening or any concerns - Sepsis Event Vital Signs: Vital Signs - 24 hr 02/09/18 02/10/18 02/10/18 23:25 00:10 00:40 Temperature 36.7 C Heart Rate 127 H 94 80 Respiratory 25 H 18 20 Rate Blood Pressure 139/95 H 116/81 H 122/74 O2 Saturation 99 97 100 02/10/18 02:15 Temperature Heart Rate 73 Respiratory 13 Rate Blood Pressure 95/52 L O2 Saturation 98 Oxygen O2 Source Room air Departure - Departure Disposition: 01 Home, Self Care Clinical Impression: Allergic reaction caused by a drug Qualifiers: Encounter type: initial encounter Qualified Code(s): T78.40XA - Allergy, unspecified, initial encounter Condition: Good Instructions: ED Allerg React Other General Ch Follow-Up: Corinne Watts MD [Primary Care Provider] - Within 3 Days Comments: Please return to the emergency department for worsening symptoms or any concerns
[2018-02-10 02:53] VITALS: BP 110/70
== END 2018-02-10 03:13 | disposition home or self-care (01) ==
LOC: ED 23:22
DX: T78.40XA Allergy, unspecified, initial encounter (principal); R00.0 Tachycardia, unspecified
CPT/HCPCS: 96365; 96372; 96375; 99283; J0171; J1200; J7040

== ENCOUNTER 2018-06-05 20:05 | Outpatient (CLI) | payer MEDICARE, MEDICAID | END 2018-06-05 20:06 | disposition critical access hospital (66) | LOC: EMS 20:05 | PROVIDERS: ATTEND Surgery | DX: R09.89 Other specified symptoms and signs involving the circulatory and respiratory systems (principal) | CPT/HCPCS: A0425; A0427 ==

== ENCOUNTER 2018-06-05 20:24 | Emergency (ER) | payer MEDICARE, MEDICAID ==
--- NOTE | 2018-06-05 20:28 | ED Physician Documentation ---
History of Present Illness - Stated complaint Stated Complaint: ALLERGIC REACTION - History obtained from History obtained from: Patient - History of Present Illness Timing: How many minutes ago (30) Pain level max: 0 Pain level now: 0 Improved by: epi pen x 2, benadryl IV Worsened by: meclizine - Additonal information Additional information: Patient was prescribed meclizine earlier today by her primary care physician. She had her first dose earlier this afternoon, but with her second dose, this e vening, she rapidly developed throat swelling, rapid palpitations. she used her epi-pen and called 911. medics gave a second dose of epi-pen and 50mg IV benadryl for ongoing sensation of throat swelling Review of Systems Cardiac: reports: Palpitations. 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, Other HEENT: Other - Present Medications Home Medications: Ambulatory Orders Medication Instructions Recorded Confirmed Losartan Potassium 25 mg PO BID 03/22/16 01/03/18 Omeprazole 20 mg PO BID 03/22/16 01/03/18 Spironolactone 50 mg PO DAILY 03/22/16 01/03/18 Ondansetron [Zofran Odt] 8 mg PO Q8HR 03/25/16 01/03/18 Calcium Carbonate [Tums] 400 mg PO TID 09/28/16 01/03/18 Diphenoxylate HCl/Atropine 1 tab PO DAILY PRN 09/28/16 01/03/18 [Diphenoxylate-Atrop 2.5-0.025] Lamotrigine [Lamotrigine ER] 200 mg PO DAILY 01/01/18 01/03/18 Melatonin 1 mg PO QPM PRN 01/01/18 01/03/18 Metoprolol Succinate [Toprol Xl] 25 mg PO BID 01/01/18 01/03/18 Multivitamin [Multiple Vitamins] 1 each PO DAILY 01/01/18 01/03/18 Oxybutynin Chloride [Ditropan Xl] 15 mg PO DAILY 01/01/18 01/03/18 Lorazepam [Ativan] 1 mg PO TID PRN 01/03/18 01/03/18 Epinephrine [Epipen 2-Deonte] 0.3 mg IJ ONCE PRN #1 auto.injct 06/05/18 Lorazepam [Ativan] 1 mg PO TID PRN #14 tablet 06/05/18 - Allergies Allergies/Adverse Reactions: Allergies Allergy/AdvReac Type Severity Reaction Status Date / Time meclizine Allergy Edema Verified 06/05/18 20:31 methylphenidate HCl * AdvReac Emesis Verified 06/05/18 20:31 [From Ritalin] Penicillins AdvReac Unknown Verified 06/05/18 20:31 pollen extracts AdvReac Unknown Verified 06/05/18 20:31 - Social History Does the pt smoke?: No Smoking Status: Never smoker Does the pt drink ETOH?: Yes Does the pt have substance abuse?: Yes - Immunizations Immunizations are current?: Yes PD ED PE NORMAL - Vitals Vital signs reviewed: Yes - General General: Alert and oriented X 3, No acute distress, Well developed/nourished - HEENT HEENT: PERRL, EOMI, Pharynx benign, Other (no kelsey/intra-oral swelling) - Neck Neck: Supple, no meningeal sign - Cardiac Cardiac: RRR, No murmur - Respiratory Respiratory: No respiratory distress, Clear bilaterally - Derm Derm: Normal color, Warm and dry, No rash Results - Vitals Vitals: Oxygen O2 Source Room air - Labs Labs: Laboratory Tests 06/05/18 06/05/18 21:11 21:22 WBC 13.5 H RBC 4.41 Hgb 13.0 Hct 38.7 MCV 87.7 MCH 29.5 MCHC 33.7 RDW 13.5 Plt Count 426 MPV 6.1 L Neut # (Auto) 11.1 H Lymph # (Auto) 1.8 Floyd # (Auto) 0.5 Eos # (Auto) 0.1 Baso # (Auto) 0.0 Absolute Nucleated RBC 0.00 Nucleated RBC % 0.0 Sodium 136 Potassium 3.1 L Chloride 100 L Carbon Dioxide 22 Anion Gap 14.0 H BUN 15 Creatinine 1.1 H Estimated GFR (MDRD) 55 L Glucose 163 H Calcium 8.7 PD MEDICAL DECISION MAKING - ED course Complexity details: reviewed results, re-evaluated patient, considered differential, d/w patient Departure - Departure Disposition: 01 Home, Self Care Clinical Impression: Allergic reaction, Vertigo Condition: Good Instructions: ED Allergic Reaction General Other, ED Vertigo Unspecified Follow-Up: Corinne Watts MD [Primary Care Provider] - Prescriptions: Epinephrine [Epipen 2-Deonte] 0.3 mg IJ ONCE PRN #1 auto.injct PRN Reason: Anaphylaxis Lorazepam [Ativan] 1 mg PO TID PRN #14 tablet PRN Reason: Vertigo Discharge Date/Time: 06/05/18 22:45
[2018-06-05] MEDS ORDERED: DEXAMETHASONE 10 MG/ML VIAL IVP STA (20:41)
[2018-06-05] MEDS ORDERED: FAMOTIDINE 20 MG/50 ML 50 ML IV STA (20:42)
[2018-06-05 21:25] LABS: BASOPHILS % (AUTO) 0.3 %; EOSINOPHILS # (AUTO) 0.1 10^3/uL (0.0-0.7); EOSINOPHILS % (AUTO) 0.9 %; LYMPHOCYTES # (AUTO) 1.8 10^3/uL (1.5-3.5); LYMPHOCYTES % (AUTO) 13.2 %; MEAN CORPUSCULAR HEMOGLOBIN 29.5 pg (27.0-31.0); MEAN CORPUSCULAR HGB CONC 33.7 g/dL (32.0-36.0); MEAN CORPUSCULAR VOLUME 87.7 fL (81.0-99.0); MEAN PLATELET VOLUME 6.1 fL (7.9-10.8); MONOCYTES # (AUTO) 0.5 10^3/uL (0.0-1.0); MONOCYTES % (AUTO) 3.6 %; NEUTROPHILS # (AUTO) 11.1 10^3/uL (1.5-6.6); PLT - PLATELET COUNT 426 10^3/uL (130-450); RED BLOOD COUNT 4.41 10^6/uL (4.20-5.40); RED CELL DISTRIBUTION WIDTH 13.5 % (12.0-15.0); WHITE BLOOD COUNT 13.5 x10^3/uL (4.8-10.8)
[2018-06-05 21:28] LABS: CALCIUM 8.7 mg/dL (8.5-10.3); CREATININE 1.1 mg/dL (0.4-1.0)
[2018-06-05] MEDS ORDERED: POTASSIUM BICARB 25 MEQ TABLET PO STA (22:29)
[2018-06-05 22:57] VITALS: BP 110/73
== END 2018-06-05 22:45 | disposition home or self-care (01) ==
LOC: EDUNIT# → ED 20:24
DX: T78.40XA Allergy, unspecified, initial encounter (principal); R42 Dizziness and giddiness
CPT/HCPCS: 36415; 80048; 85025; 96365; 96375; 99283; 99284; A9270

== ENCOUNTER 2018-06-18 11:18 | Outpatient (CLI) | payer MEDICARE, MEDICAID ==
[2018-06-18 11:54] LABS: CALCIUM 9.1 mg/dL (8.5-10.3); CREATININE 0.8 mg/dL (0.4-1.0)
== END 2018-06-18 11:19 | disposition home or self-care (01) ==
LOC: LAB 11:18
PROVIDERS: ATTEND Internal Medicine
DX: E87.6 Hypokalemia (principal)
CPT/HCPCS: 36415; 80048

== ENCOUNTER 2018-11-25 11:36 | Emergency (ER) | payer MEDICARE, MEDICAID ==
[2018-11-25 11:45] VITALS: BP 119/73
--- NOTE | 2018-11-25 13:00 | XRAY Report ---
Reason: GLF, rock vs knee, continues to have pain Procedure Date: 11/25/2018 Accession Number: [id number] / [id number] Procedure: XR - Knee 4 View RT CPT Code: FULL RESULT: EXAM: RIGHT KNEE RADIOGRAPHY EXAM DATE: 11/25/2018 12:28 PM. CLINICAL HISTORY: GLF, rock vs knee, continues to have pain. COMPARISON: None. TECHNIQUE: 4 views. FINDINGS: Bones: Bony mineralization appears appropriate. No acute fracture or focal osseous destruction. Joints: Alignment and joint spaces appear maintained. Suprapatellar density. Soft Tissues: No radiopaque foreign body. IMPRESSION: No acute fracture or dislocation identified. Suprapatellar density, suggesting a joint effusion. RADIA
--- NOTE | 2018-11-25 13:54 | ED Physician Documentation ---
PD HPI LOWER EXT INJURY - Stated complaint Stated Complaint: R KNEE INJ - Chief complaint Chief Complaint: Ext Problem - History obtained from History obtained from: Patient - History of Present Illness PD HPI LOW EXT INJURY LOCATION: Right, Knee Type of injury: Fall Where injury occurred: Home Timing - onset: How many days ago (2) Timing - duration: Days (2) Timing - details: Gradual onset Pain level max: 8 Pain level now: 6 Improved by: Rest Worsened by: Moving, Palpating Associated symptoms: No: Weakness, Numbness Recently seen: Not recently seen Review of Systems Constitutional: denies: Fever, Chills Respiratory: denies: Cough GI: denies: Nausea, Vomiting, Diarrhea Skin: denies: Rash Musculoskeletal: denies: Neck pain, Back pain Neurologic: denies: Headache, Head injury PD PAST MEDICAL HISTORY - Past Medical History Past Medical History: Yes Cardiovascular: Other Respiratory: None Endocrine/Autoimmune: None GI: GERD, Hiatal hernia, Chronic diarrhea : Incontinence, Nocturia, Frequency HEENT: Chronic vision loss, Other Psych: Depression, Anxiety, Panic attacks, ADD/ADHD Musculoskeletal: None, Fatigue Derm: None - Past Surgical History Past Surgical History: Yes 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, 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, Other HEENT: Other - Present Medications Home Medications: Ambulatory Orders Medication Instructions Recorded Confirmed Losartan Potassium 25 mg PO BID 03/22/16 01/03/18 Omeprazole 20 mg PO BID 03/22/16 01/03/18 Spironolactone 50 mg PO DAILY 03/22/16 01/03/18 Ondansetron [Zofran Odt] 8 mg PO Q8HR 03/25/16 01/03/18 Calcium Carbonate [Tums] 400 mg PO TID 09/28/16 01/03/18 Diphenoxylate HCl/Atropine 1 tab PO DAILY PRN 09/28/16 01/03/18 [Diphenoxylate-Atrop 2.5-0.025] Lamotrigine [Lamotrigine ER] 200 mg PO DAILY 01/01/18 01/03/18 Melatonin 1 mg PO QPM PRN 01/01/18 01/03/18 Metoprolol Succinate [Toprol Xl] 25 mg PO BID 01/01/18 01/03/18 Multivitamin [Multiple Vitamins] 1 each PO DAILY 01/01/18 01/03/18 Oxybutynin Chloride [Ditropan Xl] 15 mg PO DAILY 01/01/18 01/03/18 Lorazepam [Ativan] 1 mg PO TID PRN 01/03/18 01/03/18 EPINEPHrine [Epipen 2-Deonte] 0.3 mg IJ ONCE PRN #1 auto.injct 06/05/18 Lorazepam [Ativan] 1 mg PO TID PRN #14 tablet 06/05/18 Hydrocodone/Acetaminophen 1 - 2 each PO Q6H PRN #10 tablet 11/25/18 [Hydrocodon-Acetaminophen 5-325] Ibuprofen [Motrin] 800 mg PO Q8H PRN #30 tablet 11/25/18 - Allergies Allergies/Adverse Reactions: Allergies Allergy/AdvReac Type Severity Reaction Status Date / Time meclizine Allergy Edema Verified 06/05/18 20:31 sulfamethoxazole Allergy Anaphylaxis Verified 11/25/18 11:45 [From Bactrim] trimethoprim [From Bactrim] Allergy Anaphylaxis Verified 11/25/18 11:45 methylphenidate HCl * AdvReac Emesis Verified 06/05/18 20:31 [From Ritalin] Penicillins AdvReac Unknown Verified 06/05/18 20:31 pollen extracts AdvReac Unknown Verified 06/05/18 20:31 - Social History Does the pt smoke?: No Smoking Status: Never smoker Does the pt drink ETOH?: Yes Does the pt have substance abuse?: Yes - Immunizations Immunizations are current?: Yes - POLST Patient has POLST: No PD ED PE NORMAL - Vitals Vital signs reviewed: Yes - General General: Alert and oriented X 3, No acute distress, Well developed/nourished - HEENT HEENT: Moist mucous membranes - Neck Neck: Supple, no meningeal sign - Derm Derm: Warm and dry - Extremities Extremities: No deformity, Other (Mild swelling to the right knee with mild effusion. Mild diffuse tenderness. MCL with mild laxity. LCL, ACL, PCL appear intact, but limited secondary to pain. Neurovascular intact) - Neuro Neuro: Alert and oriented X 3 - Psych Psych: Normal mood, Normal affect Results - Vitals Vitals: Vital Signs - 24 hr 11/25/18 11:40 Temperature 36 C L Heart Rate 97 Respiratory 18 Rate Blood Pressure 119/73 O2 Saturation 97 Oxygen O2 Source Room air - Rads (name of study) Right knee x-ray Radiology: Prelim report reviewed, EMP read contemporaneously, See rad report (Small effusion. No bony abnormalities) PD MEDICAL DECISION MAKING - ED course Complexity details: reviewed results, re-evaluated patient, considered differential, d/w patient ED course: 37-year-old female with a slight knee effusion and laxity of the MCL. Placed in a articulating knee brace and on crutches. Will follow up with her doctor for repeat evaluation. Patient counseled regarding signs and symptoms for which I believe and urgent re-evaluation would be necessary. Patient with good understanding of and agreement to plan and is comfortable going home at this time This document was made in part using voice recognition software. While efforts are made to proofread this document, sound alike and grammatical errors may occur. Departure - Departure Disposition: 01 Home, Self Care Clinical Impression: Effusion, right knee Right knee sprain Qualifiers: Encounter type: initial encounter Involved ligament of knee: unspecified ligament Qualified Code(s): S83.91XA - Sprain of unspecified site of right knee, initial encounter Condition: Good Instructions: ED Effusion Knee, ED Sprain Knee Follow-Up: Corinne Watts MD [Primary Care Provider] - Within 1 week Prescriptions: Hydrocodone/Acetaminophen [Hydrocodon-Acetaminophen 5-325] 1 - 2 each PO Q6H PRN #10 tablet PRN Reason: pain Ibuprofen [Motrin] 800 mg PO Q8H PRN #30 tablet PRN Reason: PAIN &/OR FEVER Comments: You may bear weight as tolerated. Return if you worsen. Follow-up with your doctor for further care. Wear the brace until released by your doctor. Do not drink alcohol or drive while on narcotic pain medicine. Note that many narcotic pain relievers also contain tylenol/acetaminophen. Please ensure that your total dose of acetaminophen from all sources does not exceed 3 grams (3000mg) per day. You may constipated on this medication, take a stool softener such as "Colace" twice a day while you are on it. Also recommend a epns-jaz-vovvgab laxative such as senna or MiraLAX any day that you do not have a bowel movement. If you received narcotic pain medication in the emergency department, do not drive or operate machinery for the next 24 hours. Discharge Date/Time: 11/25/18 14:06
[2018-11-25] MEDS ORDERED: HYDROcod/ACETAM 5/325 MG TABLET PO STA (13:55)
== END 2018-11-25 14:06 | disposition home or self-care (01) ==
LOC: ED 11:36
DX: S83.91XA Sprain of unspecified site of right knee, initial encounter (principal); W18.30XA Fall on same level, unspecified, initial encounter
CPT/HCPCS: 73564; 99283; A9270

== ENCOUNTER 2018-12-06 11:57 | Outpatient (CLI) | payer MEDICARE, MEDICAID ==
--- NOTE | 2018-12-06 14:36 | MRI Report ---
Reason: R KNEE PAIN Procedure Date: 12/06/2018 Accession Number: [id number] / [id number] Procedure: MRI - Knee RT W/O CPT Code: FULL RESULT: EXAM: RIGHT KNEE MRI WITHOUT CONTRAST EXAM DATE: 12/06/2018 12:46 PM. CLINICAL HISTORY: Right knee pain. COMPARISON: KNEE 4 VIEW RT 11/25/2018 12:21 PM. TECHNIQUE: Multiplanar, multisequence T1-weighted and fluid-sensitive sequences of the knee without contrast. Other: None. FINDINGS: Bones: Geographic marrow edema proximal anterior tibia. Nondisplaced small linear subcortical fracture anterior aspect lateral tibial plateau. Focal marrow edema anterior aspect medial femoral condyle. 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 Moderate chondromalacia mid medial tibiofemoral compartment and mid lateral tibiofemoral compartment. Medial Meniscus: The medial meniscus is intact. Lateral Meniscus: The lateral meniscus is intact. Cruciate Ligaments: The anterior and posterior cruciate ligaments are intact. Collateral Ligaments: The medial collateral and lateral collateral ligamentous structures are intact. Tendons: The quadriceps, patellar, semimembranosus, and popliteus tendons are unremarkable. Musculature: No edema or fatty atrophy. Other: Moderate quantity of fluid patellar recesses. No popliteal cyst. Possible linear 7 mm loose body intercondylar fossa (image 17 series 401 and image 15 series 701). Possible small 3 mm x 5 mm linear loose body posterior aspect lateral femoral condyle superior recess. Additional possible 5 mm loose body posterior aspect lateral femoral condyle intercondylar notch (image 20 series 401 and image 19 series 601). The medial and lateral retinacula are intact. The subcutaneous tissues and fat pads are unremarkable. IMPRESSION: 1. Marrow edema proximal anterior tibia likely associated with small nondisplaced subcortical fracture. 2. Negative for meniscus tear or internal derangement. 3. 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 4. Moderate quantity of fluid patellar recesses. 5. Possible small cartilaginous loose bodies intercondylar fossa and posterior recess lateral femoral condyle. RADIA
== END 2018-12-06 11:58 | disposition home or self-care (01) ==
LOC: DI 11:57
PROVIDERS: ATTEND Internal Medicine
DX: S82.144A Nondisplaced bicondylar fracture of right tibia, initial encounter for closed fracture (principal); M94.261 Chondromalacia, right knee; M25.461 Effusion, right knee

== ENCOUNTER 2019-01-25 08:10 | Outpatient (CLI) | payer MEDICARE, MEDICAID ==
--- NOTE | 2019-01-25 10:26 | Ultrasound Report ---
Reason: PELVIC PAIN,CHRONIC Procedure Date: 01/25/2019 Accession Number: [id number] / [id number] Procedure: US - Pelvic w/Transvaginal CPT Code: FULL RESULT: EXAM: PELVIC ULTRASOUND EXAM DATE: 01/25/2019 09:49 AM. CLINICAL HISTORY: PELVIC PAIN, CHRONIC. COMPARISON: PELVIC W/TRANSVAGINAL 04/28/2017 1:25 PM. TECHNIQUE: Realtime transabdominal pelvic scan performed to identify the uterus and adnexa and as an overview of other pelvic structures, followed by transvaginal scan to provide greater detail of the uterus and adnexa, with static image documentation. FINDINGS: Uterus: 8.5 x 3.9 x 5.7 cm, volume 99 cc. Anteverted position. Normal overall size and echotexture. Masses: None. Endometrium: 6 mm. Normal. Cervix: Nabothian cysts are noted. Right Ovary: 3.2 x 1.8 x 1.9 cm, volume 6.1 cc. Normal echotexture and blood flow. Small complex cyst measuring up to 1.1 cm is noted, nonspecific. Left Ovary: 3.6 x 2.2 x 2.9 cm, volume 11.4 cc. Normal echotexture and blood flow. Free Fluid: None. Other: None. IMPRESSION: Small complex right ovarian cyst. RADIA
== END 2019-01-25 08:11 | disposition home or self-care (01) ==
LOC: DI 08:10
PROVIDERS: ATTEND Obstetrics & Gynecology
DX: N83.291 Other ovarian cyst, right side (principal)
CPT/HCPCS: 76830; 76856

== ENCOUNTER 2019-01-25 11:38 | Outpatient (CLI) | payer MEDICARE, MEDICAID ==
--- NOTE | 2019-01-25 15:25 | XRAY Report ---
Reason: PAIN IN THORACIC SPINE Procedure Date: 01/25/2019 Accession Number: [id number] / [id number] Procedure: XR - Thoracic Spine 2 View CPT Code: FULL RESULT: EXAM: THORACIC SPINE RADIOGRAPHY EXAM DATE: 01/25/2019 12:09 PM. CLINICAL HISTORY: Pain in thoracic spine. COMPARISON: None. TECHNIQUE: 2 views. FINDINGS: Alignment: There is a minimal levoconvex thoracic curvature, less than 5 degrees. No listhesis. Bones: No fractures or bone lesions. Disks: Minimal marginal osteophytosis is seen at multiple levels in the mid thoracic spine. Soft Tissues: Normal. The visualized lungs and cardiomediastinal silhouette are normal. IMPRESSION: Mild degenerative changes as described. RADIA
--- NOTE | 2019-01-25 15:25 | XRAY Report ---
Reason: PAIN IN THORACIC SPINE,LUMBAR PAIN Procedure Date: 01/25/2019 Accession Number: [id number] / [id number] Procedure: XR - Lumbar Spine 2 View CPT Code: FULL RESULT: EXAM: LUMBOSACRAL SPINE RADIOGRAPHY EXAM DATE: 01/25/2019 12:09 PM. CLINICAL HISTORY: Lumbar pain. COMPARISONS: None. TECHNIQUE: 2 views. FINDINGS: Alignment: Normal. No spondylolisthesis or scoliosis. Bones: Five goi-iqm-ocsojpt lumbar vertebral bodies are present. No fractures or bone lesions. Disks: Normal. Disk heights are maintained. Facets: No degenerative changes. Sacroiliac Joints: Unremarkable. Soft Tissues: Normal. The visualized bowel gas pattern is normal. IMPRESSION: Normal lumbar spine radiography. RADIA
== END 2019-01-25 11:39 | disposition home or self-care (01) ==
LOC: DI 11:38
PROVIDERS: ATTEND Internal Medicine
DX: M51.34 Other intervertebral disc degeneration, thoracic region (principal); N83.291 Other ovarian cyst, right side
CPT/HCPCS: 72070; 72100; 76830; 76856

== ENCOUNTER 2019-02-01 15:10 | Outpatient (CLI) | payer MEDICARE, MEDICAID ==
--- NOTE | 2019-02-04 08:16 | Mammography Report ---
Reason: ROUTINE MAMMO Procedure Date: 02/01/2019 Accession Number: [id number] / [id number] Procedure: AVIS - Screening Mammo w/Gregory CPT Code: FULL RESULT: EXAM: Screening Mammo w/Gregory DATE: 02/01/2019 3:51 PM CLINICAL HISTORY: Screening encounter. History of early menses. TECHNIQUE: (B) - Bilateral CC and MLO views were obtained. Right laterally exaggerated CC view is obtained. COMPARISON: Baseline mammogram. PARENCHYMAL PATTERN: (A) - The breast(s) demonstrate(s) scattered fibroglandular densities. FINDINGS: There are no suspicious masses, calcifications, or areas of distortion. IMPRESSION: Negative examination. BI-RADS category 1. RECOMMENDATION: (ANNUAL) - Recommend routine annual screening mammography. BI-RADS CATEGORY: (1) - Negative. STANDARD QUALIFYING STATEMENTS: 1. This examination was not reviewed with the aid of Computer-Aided Detection (CAD). 2. A negative or benign imaging report should not preclude biopsy if clinically suspicious findings are present. 3. Dense breasts may obscure an underlying neoplasm. 4. This examination was reviewed with the aid of 3D breast imaging (tomosynthesis).
== END 2019-02-01 15:11 | disposition home or self-care (01) ==
LOC: DI 15:10
DX: Z12.31 Encounter for screening mammogram for malignant neoplasm of breast (principal)
CPT/HCPCS: 77063; 77067

== ENCOUNTER 2020-02-28 07:00 | Outpatient (CLI) | payer MEDICARE, MEDICAID ==
[2020-02-28 22:15] LABS: TRICHOMONAS VAGINALIS DNA NEGATIVE (NEGATIVE)
== END 2020-02-28 23:59 | disposition home or self-care (01) ==
LOC: LAB.R 07:00
PROVIDERS: ATTEND Advanced Practice Midwife
DX: Z00.00 Encounter for general adult medical examination without abnormal findings (principal); Z11.3 Encounter for screening for infections with a predominantly sexual mode of transmission
CPT/HCPCS: 87491; 87591; 87661

== ENCOUNTER 2020-04-29 10:59 | Outpatient (CLI) | payer MEDICARE, MEDICAID ==
--- NOTE | 2020-04-30 15:20 | Mammography Report ---
BILATERAL DIGITAL SCREENING MAMMOGRAM 3D/2D: 04/29/2020 CLINICAL: Routine screening. Comparison is made to exam dated: 02/01/2019 mammogram - [facility]. There are sca ttered fibroglandular elements in both breasts. No significant masses, calcifications, or other findings are seen in either breast. There has been no significant interval change. IMPRESSION: NEGATIVE There is no mammographic evidence of malignancy. A 1 year screening mammogram is recommended. This exam was interpreted at Station ID: [id number]. NOTE: For mammograms, a report in lay terms will be sent to the patient. Approximately 15% of breast malignancies will not be visualized mammographically. In the management of a palpable breast mass, a negative mammogram must not discourage biopsy of a clinically suspicious lesion. Electronically Signed By: Ashkan gage/penrad:04/29/2020 12:59:44 ACR BI-RADS Category 1: Negative 3341F PARENCHYMAL PATTERN: (A) - The breast(s) demonstrate(s) scattered fibroglandular densities. BI-RADS CATEGORY: (1) - 1 RECOMMENDATION: (ANNUAL) - Recommend routine annual screening mammography. [id number] 1 year screening LATERALITY: (B)
== END 2020-04-29 11:00 | disposition home or self-care (01) ==
LOC: DI.N 10:59
PROVIDERS: ATTEND Advanced Practice Midwife
DX: Z12.31 Encounter for screening mammogram for malignant neoplasm of breast (principal)
CPT/HCPCS: 77063; 77067

== ENCOUNTER 2020-04-29 12:00 | Outpatient (CLI) | payer MEDICARE, MEDICAID ==
[2020-04-30 13:28] LABS: HEPATITIS B SURFACE ANTIGEN NON-REACTIVE (NON-REACTIVE); HEPATITIS C ANTIBODY NON-REACTIVE (NON-REACTIVE)
[2020-04-30 13:43] LABS: HIV AG/AB 4TH GEN NON-REACTIVE (NON-REACTIVE)
== END 2020-04-29 23:59 | disposition home or self-care (01) ==
LOC: LAB.WCP 12:00
PROVIDERS: ATTEND Advanced Practice Midwife
DX: Z00.00 Encounter for general adult medical examination without abnormal findings (principal); Z11.3 Encounter for screening for infections with a predominantly sexual mode of transmission
CPT/HCPCS: 36415; 86592; 86803; 87340; G0475; 81599; 87389

== ENCOUNTER 2020-08-06 08:00 | Outpatient (CLI) | payer MEDICARE, MEDICAID | END 2020-08-06 23:59 | disposition home or self-care (01) | LOC: LAB 08:00 | PROVIDERS: ATTEND Advanced Practice Midwife | DX: L68.0 Hirsutism (principal) | CPT/HCPCS: 36415; 84403 ==

== ENCOUNTER 2020-09-14 13:30 | Outpatient (CLI) | payer MEDICARE, MEDICAID ==
[2020-09-14 21:58] LABS: BACTERIAL VAGINOSIS DNA NEGATIVE (NEGATIVE); CANDIDA GLABRATA DNA NEGATIVE (NEGATIVE); CANDIDA GROUP DNA NEGATIVE (NEGATIVE); CANDIDA KRUSEI DNA NEGATIVE (NEGATIVE); TRICHOMONAS VAGINALIS DNA NEGATIVE (NEGATIVE)
== END 2020-09-14 23:59 | disposition home or self-care (01) ==
LOC: LAB.R 13:30
PROVIDERS: ATTEND Advanced Practice Midwife
DX: N76.0 Acute vaginitis (principal)
CPT/HCPCS: 87661; 87801

== ENCOUNTER 2021-05-03 10:22 | Outpatient (CLI) | payer MEDICARE, MEDICAID ==
--- NOTE | 2021-05-05 08:41 | Mammography Report ---
BILATERAL DIGITAL SCREENING MAMMOGRAM 3D/2D: 05/03/2021 CLINICAL: Routine screening. Comparison is made to exams dated: 04/29/2020 mammogram and 02/01/2019 mammogram - [facility]. There are scattered fibroglandular elements in both breasts. No significant masses, calcifications, or other findings are seen in either breast. There has been no significant interval change. IMPRESSION: NEGATIVE There is no mammographic evidence of malignancy. A 1 year screening mammogram is recommended. This exam was interpreted at Station ID: [id number]. NOTE: For mammograms, a report in lay terms will be sent to the patient. Approximately 15% of breast malignancies will not be visualized mammographically. In the management of a palpable breast mass, a negative mammogram must not discourage biopsy of a clinically suspicious lesion. Electronically Signed By: Andrew Louise M.D. ar/penrad:05/04/2021 13:09:40 ACR BI-RADS Category 1: Negative 3341F PARENCHYMAL PATTERN: (A) - The breast(s) demonstrate(s) scattered fibroglandular densities. BI-RADS CATEGORY: (1) - 1 RECOMMENDATION: (ANNUAL) - Recommend routine annual screening mammography. [id number] 1 year screening LATERALITY: (B)
== END 2021-05-03 10:23 | disposition home or self-care (01) ==
LOC: DI.N 10:22
DX: Z12.31 Encounter for screening mammogram for malignant neoplasm of breast (principal)

== ENCOUNTER 2021-06-08 08:32 | Day surgery (SDC) | payer MEDICARE, MEDICAID ==
[2021-06-08] MEDS ORDERED: LACTATED RINGERS 1,000 ML IV ONE (08:55)
--- NOTE | 2021-06-08 09:42 | ANESTHESIA ---
Pre-Anesthesia VS, & Labs - Diagnosis vomiting, change in bowel habits - Procedure EGD, colonoscopy Vital Signs: Temp Pulse Resp BP Pulse Ox 36.9 C 76 16 120/71 97 06/08/21 08:45 06/08/21 08:45 06/08/21 08:45 06/08/21 08:45 06/08/21 08:45 Height: 5 ft 1 in Weight (kg): 85 kg Body Mass Index: 35.4 BMI Classification: Obese - NPO >8 hours - Is Patient ?: No Home Medications and Allergies Home Medications: Ambulatory Orders Loratadine [Claritin] 10 mg PO DAILY 06/07/21 Minocycline HCl [Solodyn] 25 mg PO BID 06/07/21 Mirabegron [Myrbetriq] 50 mg PO DAILY 06/07/21 Multivitamin with Minerals [Hair, Skin and Nails] 1 each PO TID 06/07/21 Sertraline [Zoloft] 100 mg PO DAILY 06/07/21 Losartan Potassium 25 mg PO QPM 03/22/16 Omeprazole 40 mg PO DAILY 03/22/16 Calcium Carbonate [Tums] 400 mg PO TID 09/28/16 Lamotrigine [Lamotrigine ER] 200 mg PO QPM 01/01/18 Metoprolol Succinate [Toprol Xl] 25 mg PO DAILY 01/01/18 Oxybutynin Chloride [Ditropan Xl] 15 mg PO DAILY 01/01/18 Lorazepam [Ativan] 1 mg PO TID PRN 01/03/18 Loratadine [Claritin] 10 mg PO DAILY 06/07/21 Minocycline HCl [Solodyn] 25 mg PO BID 06/07/21 Mirabegron [Myrbetriq] 50 mg PO DAILY 06/07/21 Multivitamin with Minerals [Hair, Skin and Nails] 1 each PO TID 06/07/21 Sertraline [Zoloft] 100 mg PO DAILY 06/07/21 Allergies/Adverse Reactions: Allergies Allergy/AdvReac Type Severity Reaction Status Date / Time meclizine Allergy Edema Verified 06/08/21 09:08 sulfamethoxazole Allergy Anaphylaxis Verified 06/08/21 09:08 [From Bactrim] trimethoprim [From Bactrim] Allergy Anaphylaxis Verified 06/08/21 09:08 methylphenidate HCl * AdvReac Emesis Verified 06/08/21 09:08 [From Ritalin] Penicillins AdvReac Unknown Verified 06/08/21 09:08 pollen extracts AdvReac Unknown Verified 06/08/21 09:08 Anes History & Medical History - Anesthetic History Anesthesia Complications: reports: No previous complications Family history of Anesthesia Complications: Denies Family history of Malignant Hyperthermia: Denies - Medical History Cardiovascular: reports: Arrhythmia, Other (history of idopathic cardiomyopathy, 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%) Pulmonary: reports: None Gastrointestinal: reports: GERD, Hiatal hernia, Chronic diarrhea Urinary: reports: Incontinence, Nocturia, Frequency Neuro: reports: None Musculoskeletal: reports: Fatigue Endocrine/Autoimmune: reports: None Blood Disorders: reports: None Skin: reports: None Smoking Status: Current every day smoker (vapes, marijuana) Psychosocial: reports: Alcohol (occasional) History of Cancer?: No - Surgical History General: reports: Colonoscopy, EGD Eyes Ears Nose Throat (EENT): reports: Other Urologic: reports: Bladder surgery Gynecologic: reports: Tubal ligation, Other Exam General: Alert, Oriented x3 Dental: WNL Mouth Openin Fingerbreadth Mallampati classification: II Thyromental Distance: 4-6 cm Respiratory: Lungs clear Cardiovascular: Regular rate Mental/Cognitive Status: Alert/Oriented X3 Cognitive Status: Within normal limits Plan Anesthesia Type: General, Total IV Consent for Procedure(s) Verified and Reviewed: Yes Code Status: Attempt Resuscitation ASA classification: 3-Severe systemic disease Is this case an emergency?: No
[2021-06-08] MEDS ORDERED: LIDOCAINE-MPF 2% 5 ML VIAL ONE (09:54)
[2021-06-08] MEDS ORDERED: PROPOFOL 500 MG/50 ML 500 MG/50 ML VIAL ONE (09:54)
[2021-06-08] MEDS ORDERED: MIDAZOLAM 2 MG/2 ML VIAL ONE (09:54)
[2021-06-08] MEDS ORDERED: ONDANSETRON 4 MG/2 ML VIAL ONE (10:07)
[2021-06-08] MEDS ORDERED: PROPOFOL 200 MG/20 ML VIAL IVP ONE (10:54)
[2021-06-08] MEDS ORDERED: GLYCOPYRROLATE 1 MG/5 ML VIAL ONE (10:54)
[2021-06-08] MEDS ORDERED: LACTATED RINGERS 100 ML IV ONE (11:24)
[2021-06-08 11:42] VITALS: BP 117/83
== END 2021-06-08 08:33 | disposition home or self-care (01) ==
LOC: SDS 08:32
PROVIDERS: ATTEND Surgery
PROC: 0DB68ZX Excision of Stomach, Via Natural or Artificial Opening Endoscopic, Diagnostic (ICD-10-PCS; principal; 2021-06-08 09:45)
PROC: 0DBE8ZX Excision of Large Intestine, Via Natural or Artificial Opening Endoscopic, Diagnostic (ICD-10-PCS; 2021-06-08 09:45)
DX: K29.50 Unspecified chronic gastritis without bleeding (principal); K57.30 Diverticulosis of large intestine without perforation or abscess without bleeding; K21.9 Gastro-esophageal reflux disease without esophagitis; K64.8 Other hemorrhoids; K64.4 Residual hemorrhoidal skin tags; I42.8 Other cardiomyopathies; J45.909 Unspecified asthma, uncomplicated; F41.9 Anxiety disorder, unspecified; F32.9 Major depressive disorder, single episode, unspecified; F40.240 Claustrophobia; F41.0 Panic disorder [episodic paroxysmal anxiety]; R32 Unspecified urinary incontinence; R35.1 Nocturia; R35.0 Frequency of micturition; F17.200 Nicotine dependence, unspecified, uncomplicated; Z72.89 Other problems related to lifestyle; E66.9 Obesity, unspecified; Z68.35 Body mass index [BMI] 35.0-35.9, adult; Z79.899 Other long term (current) drug therapy
CPT/HCPCS: 43239; 45380; 81599; 83630; 87015; 87177; 87209; 87272; 87329; 87493; J7120; 81025; 87045; 87046; 87491; 87591; 87661

== ENCOUNTER 2021-09-10 08:00 | Outpatient (CLI) | payer MEDICARE, MEDICAID ==
[2021-09-10 23:59] LABS: CHLAMYDIA TRACHOMATIS DNA NEGATIVE (NEGATIVE); NEISSERIA GONORRHOEAE DNA NEGATIVE (NEGATIVE); TRICHOMONAS VAGINALIS DNA NEGATIVE (NEGATIVE)
== END 2021-09-10 23:59 | disposition home or self-care (01) ==
LOC: LAB.R 08:00
PROVIDERS: ATTEND Nurse Practitioner Obstetrics & Gynecology
DX: Z11.3 Encounter for screening for infections with a predominantly sexual mode of transmission (principal)
CPT/HCPCS: 87491; 87591; 87661

== ENCOUNTER 2021-09-10 13:43 | Outpatient (CLI) | payer MEDICARE, MEDICAID ==
--- NOTE | 2021-09-10 16:19 | Ultrasound Report ---
PROCEDURE: Pelvic w/Transvaginal INDICATIONS: ABN MENSTRAL BLEEDING TECHNIQUE: Real-time scanning was performed of the pelvic organs, with image documentation. Additional endovagi nal scanning was necessary due to incomplete visualization of the adnexal and endometrial structures by transabdominal scanning. COMPARISON: Ultrasound pelvis, 01/25/2019. FINDINGS: Transabdominal scanning: Limited scanning through the kidneys shows no hydronephrosis. Small amount of free fluid in the cul-de-sac. Endovaginal scanning: Uterus: Uterus is anteverted measuring 8.7 x 4.2 x 5.4 cm. The endometrium measures 12.2 mm in comb ined thickness. Nabothian cysts are noted in cervix. Ovaries: Right ovary measures 2.9 x 1.9 x 2.1 cm (6.2 cc). Left ovary measures 3.9 x 2.6 x 2.7 cm (1 4.2 cc). There is a 2.4 x 2.3 x 2.1 cm mildly complex cyst in the left ovary. IMPRESSION: 1. A 2.4 x 2.3 x 2.1 cm mildly complex cyst in the left ovary. A follow-up ultrasound is suggested in 6-12 weeks. 2. Normal uterus and right ovary. 3. Small amount of free fluid in the cul-de-sac. Reviewed by: Mary Jones MD on 09/10/2021 4:17 PM PST Approved by: Mary Jones MD on 09/10/2021 4:17 PM PST Station ID: [id number]
[2021-09-11 13:42] LABS: HEPATITIS B SURFACE ANTIGEN NON-REACTIVE (NON-REACTIVE)
[2021-09-11 15:21] LABS: HEPATITIS C ANTIBODY NON-REACTIVE (NON-REACTIVE)
[2021-09-13 15:27] LABS: HIV AG/AB 4TH GEN NON-REACTIVE (NON-REACTIVE)
[2021-09-14 12:26] LABS: HSV 2 IGG TYPE SPECIFIC AB <0.90 index
== END 2021-09-10 13:44 | disposition home or self-care (01) ==
LOC: DI 13:43
PROVIDERS: ATTEND Nurse Practitioner Obstetrics & Gynecology
DX: N93.9 Abnormal uterine and vaginal bleeding, unspecified (principal); N83.292 Other ovarian cyst, left side; R93.89 Abnormal findings on diagnostic imaging of other specified body structures; Z11.3 Encounter for screening for infections with a predominantly sexual mode of transmission
CPT/HCPCS: 76830; 76856; 81599; 86592; 86695; 86696; 86803; 87340; 87491; 87591; 87661; G0475; 87389

== ENCOUNTER 2021-11-03 14:05 | Outpatient (CLI) | payer MEDICARE, MEDICAID ==
--- NOTE | 2021-11-03 16:39 | Ultrasound Report ---
PROCEDURE: Pelvic w/Transvaginal INDICATIONS: LEFT OVARIAN CYST TECHNIQUE: Real-time scanning was performed of the pelvic organs, with image documentation. Additional endovagi nal scanning was necessary due to incomplete visualization of the adnexal and endometrial structures by transabdominal scanning. COMPARISON: 09/10/2021, 01/15/2019 and 04/28/2017.. FINDINGS: Limited scanning through the kidneys shows no hydronephrosis. No pathologic free abdominal or pelvic fluid. Uterus: Uterus is normal in size at 8.4 x 4.2 x 4.6 cm. The endometrium measures 9.4 mm in combined thickness. Uterus is sonographically normal. Ovaries: Right ovary measures 2.4 x 2.0 x 2.3 cm with total volume 8.2 cc. Right ovary is sonographi luz maria normal. . Left ovary measures 2.4 x 2.4 x 2.2 cm with total volume of 9.4 cc. Left ovary is son ographically normal. Previously identified left ovarian cyst has resolved in the interval since prior exam obtained 09/10/2021. Other: No free pelvic fluid. IMPRESSION: Normal pelvic sonogram. Reviewed by: Vibha Zepeda MD, PhD on 11/03/2021 4:37 PM PDT Approved by: Vibha Zepeda MD, PhD on 11/03/2021 4:37 PM PDT Station ID: [id number]
== END 2021-11-03 14:06 | disposition home or self-care (01) ==
LOC: DI 14:05
PROVIDERS: ATTEND Obstetrics & Gynecology
DX: N83.292 Other ovarian cyst, left side (principal)

== ENCOUNTER 2021-12-20 16:22 | Outpatient (CLI) | payer MEDICARE, MEDICAID ==
[2021-12-20 16:56] LABS: HCG,QUALITATIVE BLOOD NEGATIVE
[2021-12-20 17:02] LABS: THYROID STIMULATING HORMONE 2.61 uIU/mL (0.34-5.60)
[2021-12-20 17:31] LABS: FOLLICLE STIMULATING HORMONE 5.85 mIU/mL
== END 2021-12-20 16:23 | disposition home or self-care (01) ==
LOC: LAB.R 16:22
PROVIDERS: ATTEND Internal Medicine
DX: N92.6 Irregular menstruation, unspecified (principal)
CPT/HCPCS: 83001; 84443; 84703

== ENCOUNTER 2022-05-19 12:54 | Outpatient (CLI) | payer MEDICARE, MEDICAID ==
--- NOTE | 2022-05-20 15:39 | Mammography Report ---
BILATERAL DIGITAL SCREENING MAMMOGRAM 3D/2D: 05/19/2022 CLINICAL: Routine screening. Comparison is made to exams dated: 05/03/2021 mammogram, 04/29/2020 mammogram, and 02/01/2019 mammogr am - [facility]. There are scattered areas of fibroglandular density in both breasts (category b / 25%-50% glandular t issue). No significant masses, calcifications, or other findings are seen in either breast. There has been no significant interval change. IMPRESSION: NEGATIVE There is no mammographic evidence of malignancy. A 1 year screening mammogram is recommended. Based on the Tyrer Cuzick model (a risk assessment model) the patients lifetime risk is 7.7% and her 10 year risk is 1.2%. According to the ACR, ACS, and NCCN guidelines, an annual breast MRI exam lam g with mammogram is recommended if the patients lifetime risk is 20% or greater. This exam was interpreted at Station ID: [id number]. NOTE: For mammograms, a report in lay terms will be sent to the patient. Approximately 15% of breast malignancies will not be visualized mammographically. In the management of a palpable breast mass, a negative mammogram must not discourage biopsy of a clinically suspicious lesion. Electronically Signed By: Eilna varghese/evi:05/19/2022 16:39:47 ACR BI-RADS Category 1: Negative 3341F PARENCHYMAL PATTERN: (A) - The breast(s) demonstrate(s) scattered fibroglandular densities. BI-RADS CATEGORY: (1) - 1 RECOMMENDATION: (ANNUAL) - Recommend routine annual screening mammography. [id number] 1 year screening LATERALITY: (B)
== END 2022-05-19 12:55 | disposition home or self-care (01) ==
LOC: DI.N 12:54
DX: Z12.31 Encounter for screening mammogram for malignant neoplasm of breast (principal)

== ENCOUNTER 2022-05-23 08:00 | Outpatient (CLI) | payer MEDICARE, MEDICAID ==
[2022-05-23 20:24] LABS: CHLAMYDIA TRACHOMATIS DNA NEGATIVE (NEGATIVE); NEISSERIA GONORRHOEAE DNA NEGATIVE (NEGATIVE); TRICHOMONAS VAGINALIS DNA NEGATIVE (NEGATIVE)
== END 2022-05-23 23:59 | disposition home or self-care (01) ==
LOC: LAB.WC 08:00
PROVIDERS: ATTEND Nurse Practitioner
DX: Z11.3 Encounter for screening for infections with a predominantly sexual mode of transmission (principal)
CPT/HCPCS: 87491; 87591; 87661

== ENCOUNTER 2022-05-23 15:16 | Outpatient (CLI) | payer MEDICARE, MEDICAID ==
[2022-05-24 03:08] LABS: HIV SCREEN 4TH GENERATION Non Reactive (Non Reactive)
[2022-05-24 05:10] LABS: HBsAG SCREEN Negative (Negative); HCV AB <0.1 s/co ratio (0.0-0.9)
[2022-05-24 09:09] LABS: RPR Non Reactive (Non Reactive)
== END 2022-05-23 15:17 | disposition home or self-care (01) ==
LOC: LAB 15:16
PROVIDERS: ATTEND Nurse Practitioner
DX: Z11.3 Encounter for screening for infections with a predominantly sexual mode of transmission (principal)
CPT/HCPCS: 36415; 86592; 86803; 87340; 87491; 87591; 87661; G0475; 87389

== ENCOUNTER 2022-12-02 12:53 | Outpatient (CLI) | payer MEDICARE, MEDICAID | END 2022-12-02 12:54 | disposition home or self-care (01) | LOC: NS 12:53 | PROVIDERS: ATTEND Internal Medicine | DX: Z71.3 Dietary counseling and surveillance (principal); E66.9 Obesity, unspecified; Z68.41 Body mass index [BMI] 40.0-44.9, adult | CPT/HCPCS: 97802 ==

== ENCOUNTER 2022-12-22 09:59 | Outpatient (CLI) | payer MEDICARE, MEDICAID ==
--- NOTE | 2022-12-23 11:28 | Ultrasound Report ---
LIMITED ULTRASOUND OF RIGHT BREAST AND AXILLA: 12/22/2022 CLINICAL: Palpable right breast lump. Comparison is made to exams dated: 12/22/2022 mammogram, 05/19/2022 mammogram, 05/03/2021 mammogram, 04/29/2020 mammogram, and 02/01/2019 mammogram - [facility]. Color flow and real-time ultrasound of the right breast 5 o'clock, and axilla regions were performed. Ceja scale images of the real-time examination were reviewed. There is a 1.1 cm x 0.7 cm x 0.7 cm oval mass in the right breast at 5 o'clock middle depth 10 cm fro m the nipple. This oval mass is hypoechoic. This correlates as palpated. Color flow imaging demons trates that there is no vascularity present. No significant abnormalities were seen sonographically in the right axilla. IMPRESSION: SUSPICIOUS OF MALIGNANCY The palpable 1.1 cm x 0.7 cm x 0.7 cm oval mass in the right breast is at a low suspicion for maligna ncy. An ultrasound guided biopsy is recommended. No enlarged right axillary lymph nodes. Exam findings were discussed with the patient by Dr. Dunn. This exam was interpreted at Station ID: [id number]. Electronically Signed By: Stephen Rose M.D. slc/:12/22/2022 12:31:26 Ultrasound BI-RADS: 4a Low suspicion for malignancy BI-RADS CATEGORY: (4a) - Low Susp Biopsy [id number] Immediate follow-up LATERALITY: (R)
--- NOTE | 2022-12-23 11:28 | Mammography Report ---
UNILATERAL RIGHT DIGITAL DIAGNOSTIC MAMMOGRAM 3D/2D: 12/22/2022 CLINICAL: Palpable right breast lump. Comparison is made to exams dated: 05/19/2022 mammogram, 05/03/2021 mammogram, 04/29/2020 mammogram, and 02/01/2019 mammogram - [facility]. There are scattered areas of fibroglandular density in the right breast (category b / 25%-50% glandul ar tissue). No significant masses, calcifications, or other findings are seen in the breast. IMPRESSION: INCOMPLETE: NEEDS ADDITIONAL IMAGING EVALUATION No mammographic evidence of malignancy. A targeted ultrasound is recommended and will immediately follow. Based on the Tyrer Cuzick model (a risk assessment model) the patients lifetime risk is 7.7% and her 10 year risk is 1.3%. According to the ACR, ACS, and NCCN guidelines, an annual breast MRI exam lam g with mammogram is recommended if the patients lifetime risk is 20% or greater. This exam was interpreted at Station ID: [id number]. NOTE: For mammograms, a report in lay terms will be sent to the patient. Approximately 15% of breast malignancies will not be visualized mammographically. In the management of a palpable breast mass, a negative mammogram must not discourage biopsy of a clinically suspicious lesion. Electronically Signed By: Stephen Rose M.D. slc/:12/22/2022 11:27:12 ACR BI-RADS Category 0: Incomplete 3340F PARENCHYMAL PATTERN: (A) - The breast(s) demonstrate(s) scattered fibroglandular densities. BI-RADS CATEGORY: (0) - 0 Ultrasound [id number] Immediate follow-up LATERALITY: (B)
== END 2022-12-22 10:00 | disposition home or self-care (01) ==
LOC: DI 09:59
PROVIDERS: ATTEND Nurse Practitioner
DX: N63.14 Unspecified lump in the right breast, lower inner quadrant (principal)

== ENCOUNTER 2022-12-22 12:20 | Outpatient (CLI) | payer MEDICARE, MEDICAID | END 2022-12-22 12:21 | disposition home or self-care (01) | LOC: NS 12:20 | PROVIDERS: ATTEND Internal Medicine | DX: Z71.3 Dietary counseling and surveillance (principal); E66.9 Obesity, unspecified; Z68.41 Body mass index [BMI] 40.0-44.9, adult | CPT/HCPCS: 97803 ==

== ENCOUNTER 2023-01-02 09:30 | Outpatient (CLI) | payer MEDICARE, MEDICAID ==
[2023-01-02] MEDS ORDERED: LIDOCAINE-MPF 1% 5 ML VIAL ONE (09:41)
[2023-01-02] MEDS ORDERED: LIDOCAINE 1%-EPI 1:100000 20 ML MDV ONE (09:41)
--- NOTE | 2023-01-03 09:33 | Ultrasound Report ---
LIMITED ULTRASOUND OF RIGHT BREAST: 01/02/2023 CLINICAL: Palpable right breast lump. Comparison is made to exams dated: 12/22/2022 ultrasound, 12/22/2022 mammogram, 05/19/2022 mammogram, 05/03/2021 mammogram, 04/29/2020 mammogram, and 02/01/2019 mammogram - [facility]. Ultrasound of the right breast 5-6 o'clock region was performed. Ceja scale images of the real-time examination were reviewed. No significant abnormalities were seen sonographically in the right breast. The 5-6:00 region was th oroughly scanned by the technologist and radiologist. The asymmetry seen previously was not identifie d. In the area of palpable abnormality, there is sonographically normal tissue. IMPRESSION: PROBABLY BENIGN No sonographic target for breast biopsy on today's exam. The previous finding was probably artifact. Despite this, ultrasound follow up in 5 months is recommended to reassess this area. The patient den l be due for bilateral mammograms at that same visit. Findings and recommendations were discussed wit h the patient in person at time of exam. She agrees with the plan. This exam was interpreted at Station ID: [id number]. Electronically Signed By: Elina varghese/:01/02/2023 17:16:42 Ultrasound BI-RADS: 3 Probably benign BI-RADS CATEGORY: (3) - 3 Mammogram [id number] 5 month follow-up LATERALITY: (B)
== END 2023-01-02 09:31 | disposition home or self-care (01) ==
LOC: DI 09:30
PROVIDERS: ATTEND Nurse Practitioner
DX: R92.8 Other abnormal and inconclusive findings on diagnostic imaging of breast (principal)

== ENCOUNTER 2023-06-20 08:00 | Outpatient (CLI) | payer MEDICARE, MEDICAID ==
[2023-06-20 21:29] LABS: CHLAMYDIA TRACHOMATIS DNA NEGATIVE (NEGATIVE); NEISSERIA GONORRHOEAE DNA NEGATIVE (NEGATIVE); TRICHOMONAS VAGINALIS DNA NEGATIVE (NEGATIVE)
== END 2023-06-20 23:59 | disposition home or self-care (01) ==
LOC: LAB.WC 08:00
PROVIDERS: ATTEND Nurse Practitioner
DX: Z11.3 Encounter for screening for infections with a predominantly sexual mode of transmission (principal)
CPT/HCPCS: 87491; 87591; 87661

== ENCOUNTER 2023-06-21 09:44 | Outpatient (CLI) | payer MEDICARE, MEDICAID ==
--- NOTE | 2023-06-22 10:47 | Ultrasound Report ---
LIMITED ULTRASOUND OF RIGHT BREAST: 06/21/2023 CLINICAL: Patient returns for a 6 month follow up of the right breast. Comparison is made to exams dated: 06/21/2023 mammogram, 01/02/2023 ultrasound, 12/22/2022 ultrasound, 12/22/2022 mammogram, 05/19/2022 mammogram, and 05/03/2021 mammogram - [facility]. Color flow ultrasound of the right breast 5-6 o'clock and 9 o'clock regions was performed. Ceja scal e images of the real-time examination were reviewed. There is a 0.8 cm x 0.5 cm x 0.5 cm cluster of microcysts in the right breast at 9 o'clock middle dep th 5 cm from the nipple. This cluster of microcysts is hypoechoic with posterior acoustic enhancemen t. This correlates with mammography findings. Color flow imaging demonstrates that there is no vasc ularity present. No sonographic abnormalities in the region of previous ultrasound finding at 5-6:00. IMPRESSION: PROBABLY BENIGN The 0.8 cm x 0.5 cm x 0.5 cm cluster of microcysts in the right breast corresponds to the incidental mammogram finding, has a differential diagnosis of apocrine metaplasia or a complicated cyst and is p robably benign. A follow-up ultrasound in 6 months to demonstrate stability is recommended. There are no abnormalities seen in the right breast to correspond with the ultrasound findings at 5 a nd 6 o'clock which is consistent with normal fibroglandular tissue. Findings and recommendations were conveyed to the patient at time of exam. This exam was interpreted at Station ID: [id number]. Electronically Signed By: Elina varghese/:06/21/2023 11:50:11 Ultrasound BI-RADS: 3 Probably benign BI-RADS CATEGORY: (3) - 3 Ultrasound [id number] 6 month follow-up LATERALITY: (R)
--- NOTE | 2023-06-22 10:47 | Mammography Report ---
BILATERAL DIGITAL DIAGNOSTIC MAMMOGRAM 3D/2D: 06/21/2023 CLINICAL: Patient returns for a 6 month follow up of the right breast, due for bilateral exam. Comparison is made to exams dated: 12/22/2022 mammogram, 05/19/2022 mammogram, 05/03/2021 mammogram, 04/29/2020 mammogram, and 02/01/2019 mammogram - [facility]. There are scattered areas of fibroglandular density in both breasts (category b / 25%-50% glandular t issue). No mammographic correlate to the previous right breast 5:00 palpable abnormality and ultrasound findi ng. There is an incidental 7 mm oval focal asymmetry in the right breast at 9 o'clock anterior depth. Th is is more prominent. No other significant masses, calcifications, or other findings are seen in either breast. IMPRESSION: INCOMPLETE: NEEDS ADDITIONAL IMAGING EVALUATION The 7 mm incidental asymmetry in the right breast most likely is a cyst or a lymph node but remains i ndeterminate. An ultrasound is recommended. This was performed immediately following this exam. There is no abnormality seen in the right breast to correspond with the previous palpable abnormality and ultrasound finding at 5 o'clock. Ultrasound is recommended to document stability of this area. This was performed immediately following this exam. Based on the Tyrer Cuzick model (a risk assessment model) the patients lifetime risk is 7.7% and her 10 year risk is 1.3%. According to the ACR, ACS, and NCCN guidelines, an annual breast MRI exam lam g with mammogram is recommended if the patients lifetime risk is 20% or greater. This exam was interpreted at Station ID: [id number]. NOTE: For mammograms, a report in lay terms will be sent to the patient. Approximately 15% of breast malignancies will not be visualized mammographically. In the management of a palpable breast mass, a negative mammogram must not discourage biopsy of a clinically suspicious lesion. Electronically Signed By: Elina varghese/:06/21/2023 11:25:18 ACR BI-RADS Category 0: Incomplete 3340F PARENCHYMAL PATTERN: (A) - The breast(s) demonstrate(s) scattered fibroglandular densities. BI-RADS CATEGORY: (0) - 0 Ultrasound [id number] Immediate follow-up LATERALITY: (B)
== END 2023-06-21 09:45 | disposition home or self-care (01) ==
LOC: DI 09:44
PROVIDERS: ATTEND Nurse Practitioner
DX: N60.11 Diffuse cystic mastopathy of right breast (principal); R92.323 Mammographic fibroglandular density, bilateral breasts

== ENCOUNTER 2023-10-07 11:11 | Outpatient (CLI) | payer MEDICARE, MEDICAID ==
--- NOTE | 2023-10-07 18:20 | Ultrasound Report ---
PROCEDURE: Arterial Duplex Lwr Ext BL INDICATIONS: FOOT PAIN, NUMBNESS TECHNIQUE: Color and pulse Doppler interrogation was performed of both lower extremity arterial systems, with im age documentation. COMPARISON: None FINDINGS: Right lower extremity: Common femoral artery: 112 cm/sec, with triphasic flow. Deep femoral artery: 39 cm/sec, with triphasic flow. Proximal superficial femoral artery: 100 cm/sec, with triphasic flow. Mid superficial femoral artery: 78 cm/sec, with triphasic flow. Distal superficial femoral artery: 76 cm/sec, with triphasic flow. Popliteal artery: 52 cm/sec, with triphasic flow. Posterior tibial artery: 100 cm/sec, with biphasic flow. Anterior tibial artery/dorsalis pedis: 43/58 cm/sec, with monophasic flow. Ceja-scale imaging description: No significant atherosclerotic plaque. Left lower extremity: Common femoral artery: 91 cm/sec, with triphasic flow. Deep femoral artery: 41 cm/sec, with triphasic flow. Proximal superficial femoral artery: 69 cm/sec, with triphasic flow. Mid superficial femoral artery: 71 cm/sec, with triphasic flow. Distal superficial femoral artery: 50 cm/sec, with triphasic flow. Popliteal artery: 28 cm/sec, with triphasic flow. Posterior tibial artery: 96 cm/sec, with triphasic flow. Anterior tibial artery/dorsalis pedis: 58/50 cm/sec, with triphasic flow. Ceja-scale imaging description: No significant atherosclerotic plaque. IMPRESSION: 1. Finding is concerning for hemodynamically significant stenosis involving distal right popliteal ar pierre/proximal posterior tibial artery. 2. No hemodynamically significant stenosis is noted in visualized left lower extremity arteries. Reviewed by: Chago Alfred MD on 10/07/2023 6:19 PM PDT Approved by: Chago Alfred MD on 10/07/2023 6:19 PM PDT Station ID: [id number]
== END 2023-10-07 11:12 | disposition home or self-care (01) ==
LOC: DI 11:11
PROVIDERS: ATTEND Internal Medicine
DX: M79.673 Pain in unspecified foot (principal); R20.0 Anesthesia of skin
CPT/HCPCS: 93925

== ENCOUNTER 2023-12-29 12:24 | Outpatient (CLI) | payer MEDICARE, MEDICAID ==
--- NOTE | 2024-01-01 08:35 | Ultrasound Report ---
LIMITED ULTRASOUND OF RIGHT BREAST: 12/29/2023 CLINICAL: Patient returns for a 6 month follow up of the right breast. Comparison is made to exams dated: 06/21/2023 ultrasound and 06/21/2023 mammogram - [facility]. Color flow ultrasound of the right breast 9 o'clock region was performed on the areas of interest. G ray scale images of the real-time examination were reviewed. There is a stable 0.8 cm x 0.5 cm x 0.5 cm cluster of microcysts in the right breast at 9 o'clock mid dle depth 5 cm from the nipple. This cluster of microcysts is hypoechoic with posterior acoustic enh ancement. This correlates with mammography findings. Color flow imaging demonstrates that there is no vascularity present. IMPRESSION: PROBABLY BENIGN The stable 0.8 cm x 0.5 cm x 0.5 cm cluster of microcysts in the right breast has a differential diag nosis of apocrine metaplasia or a complicated cyst and is probably benign. A follow-up ultrasound in 6 months is recommended to demonstrate stability. This exam was interpreted at Station ID: [id number]. SUMMARY: The patient will be due for her bilateral mammogram at this time. Electronically Signed By: Helen hung/:12/29/2023 12:56:44 Ultrasound BI-RADS: 3 Probably benign BI-RADS CATEGORY: (3) - 3 Ultrasound [id number] 6 month follow-up LATERALITY: (B)
== END 2023-12-29 12:25 | disposition home or self-care (01) ==
LOC: DI 12:24
PROVIDERS: ATTEND Nurse Practitioner
DX: N60.11 Diffuse cystic mastopathy of right breast (principal)